=== PATIENT | female | born 1980 | race Caucasian/White ===

== ENCOUNTER 2020-09-27 07:12 | Emergency (ER) | payer MEDICARE, MEDICAID, SELFPAY ==
[2020-09-27 07:30] VITALS: BP 133/80; PULSE 82; RESP 18; TEMP 36.8; O2SAT 97; BMI 25.0
--- NOTE | 2020-09-27 09:36 | ED_ITS ---
HPI - Dental/Oral General Chief complaint: Dental/Oral <LEAH Finnegan Last Filed: 09/27/20 19:16> Stated complaint: tooth pain <LEAH Finnegan Last Filed: 09/27/20 19:16> Time Seen by Provider: 09/27/20 09:16 <LEAH Finnegan Last Filed: 09/27/20 19:16> Source: patient <LEAH Finnegan Last Filed: 09/27/20 19:16> Mode of arrival: ambulatory <LEAH Finnegan Last Filed: 09/27/20 19:16> Limitations: no limitations <LEAH Finnegan Last Filed: 09/27/20 19:16> History of Present Illness HPI Narrative: 60-year-old female with past medical history of dental pain the schedule to have 9 teeth extracted tomorrow, presents for right lower jaw worsening dental pain despite being on clindamycin for 4 days. Had no fevers, no sore throat, no nausea or vomiting. Patient noticed the pain was worsening 2 days ago, and was worse last night. She does not appreciate any bump inside of her mouth. She is getting acid reflux she thinks to the clindamycin. She is concerned that she will not be able to have the dental surgery tomorrow. <LEAH Finnegan Last Filed: 09/27/20 19:16> MD Complaint: tooth pain <LEAH Finnegan Last Filed: 09/27/20 19:16> Teeth map: 1. Avulsed tooth tender to palp <LEAH Finnegan Last Filed: 09/27/20 19:16> Severity: severe <LEAH Finnegan Last Filed: 09/27/20 19:16> Relieving factors: nothing <LEAH Finnegan Last Filed: 09/27/20 19:16> Exacerbating factors: chewing <LEAH Finnegan Last Filed: 09/27/20 19:16> Context: history of dental caries <LEAH Finnegan Last Filed: 09/27/20 19:16> Treatment prior to arrival: none <LEAH Finnegan Last Filed: 09/27/20 19:16> Related Data Home medications: Previous Rx's Medication Instructions Recorded diazepam 2 mg tablet (Valium) 2 mg PO TID 2 Days #6 tab 09/27/20 famotidine 40 mg tablet 40 mg PO DAILY 7 Days #7 tab 09/27/20 <LEAH Finnegan Last Filed: 09/27/20 19:16> Allergies/adverse reactions: Allergies Allergy/AdvReac Type Severity Reaction Status Date / Time egg [EGG] AdvReac Unknown UPSET Verified 09/27/20 07:29 STOMACH <LEAH Finnegan Last Filed: 09/27/20 19:16> Review of Systems Constitutional: Constitutional: Denies body ache(s), Denies chills, Denies fatigue, Denies fever(s), Denies headache(s), Denies malaise and Denies weakness <LEAH Finnegan Last Filed: 09/27/20 19:16> Eyes: Eyes: Denies diplopia <LEAH Finnegan Last Filed: 09/27/20 19:16> ENT: Reports dental pain, Denies vertigo, Denies dizziness, Denies headache(s) and Denies throat swelling <LEAH Finnegan Last Filed: 09/27/20 19:16> Cardiovascular: Cardiovascular: Denies chest pain, Denies syncope, Denies leg edema, Denies lightheadedness, Denies Loss of Consciousness, Denies palpitations and Denies dyspnea <LEAH Finnegan Last Filed: 09/27/20 19:16> Respiratory: Respiratory: Denies chest congestion, Denies cough and Denies dyspnea <LEAH Finnegan Last Filed: 09/27/20 19:16> Gastrointestinal: Gastrointestinal: Reports abdominal pain, Denies hematochezia, Denies constipation, Denies diarrhea and Denies vomiting <LEAH Finnegan Last Filed: 09/27/20 19:16> Musculoskeletal: Musculoskeletal: Reports no additional musculoskeletal complaints <LEAH Finnegan Last Filed: 09/27/20 19:16> Neurologic: Denies confusion, Denies vertigo, Denies dizziness, Denies syncope, Denies headache(s) and Denies weakness <LEAH Finnegan Last Filed: 09/27/20 19:16> Psychiatric: Psychiatric: Denies anxiety, Denies confusion and Denies depression <LEAH Finnegan - Last Filed: 09/27/20 19:16> Endocrine: Endocrine: Denies fatigue and Denies palpitations <LEAH Aden Ch - Last Filed: 09/27/20 19:16> Allergic/Immunologic: Allergic/Immunologic: Denies throat swelling <LEAH Finnegan - Last Filed: 09/27/20 19:16> PMFSH Past Medical History Medical History: Medical History (Updated 09/28/20 @ 00:02 by Cecilia Hoyos) ADHD Autism Julianne's thyroiditis Hypoglycemia PTSD (post-traumatic stress disorder) <LEAH Finnegan - Last Filed: 09/27/20 19:16> Surgical History: Surgical History H/O myringotomy <LEAH Finnegan - Last Filed: 09/27/20 19:16> Social History Social History: Social History Advance Directives: No Advance Directives Information Provided: Yes <LEAH Finnegan - Last Filed: 09/27/20 19:16> Physical Exam Vital Signs: Vital Signs: Last Vital Signs Temp 98.3 F 09/27/20 07:30 Pulse 82 09/27/20 07:30 Resp 18 09/27/20 07:30 BP 133/80 09/27/20 07:30 Pulse Ox 97 09/27/20 07:30 Body Mass Index 25.0 <LEAH Finnegan - Last Filed: 09/27/20 19:16> Vital Signs: Last Vital Signs Temp 98.3 F 09/27/20 07:30 Pulse 82 09/27/20 07:30 Resp 18 09/27/20 07:30 BP 133/80 09/27/20 07:30 Pulse Ox 97 09/27/20 07:30 Body Mass Index 25.0 <Jose Juan Engle MD - Last Filed: 09/28/20 06:57> Const: General: No confusion <LEAH Finnegan - Last Filed: 09/27/20 19:16> Nutritional Appearance: well nourished <Yoko Osullivan [facility] Last Filed: 09/27/20 19:16> Orientation/consciousness: No confusion <Yoko Osullivan [facility] Last Filed: 09/27/20 19:16> Limitations: no limitations <Yoko Osullivan [facility] Last Filed: 09/27/20 19:16> HENMT: Head: Yes normal to inspection, Yes normocephalic and Yes atraumatic <Yoko Osullivan [facility] Last Filed: 09/27/20 19:16> Ears: hearing grossly normal bilaterally, external ears normal, TM's normal bilaterally and EAC's normal <Yoko Osullivan [facility] Last Filed: 09/27/20 19:16> General nose exam: Normal external nose present <Yoko Osullivan [facility] Last Filed: 09/27/20 19:16> Face and sinus: Yes normal facial exam, Yes sinuses nontender and Yes face symmetric <Yoko Osullivan [facility] Last Filed: 09/27/20 19:16> Mouth: Normal oral and palatal mucosa present <Yoko Osullivan [facility] Last Filed: 09/27/20 19:16> Teeth and gingiva: gingiva normal, caries and poor dentition <Yoko Osullivan [facility] Last Filed: 09/27/20 19:16> Throat: Yes posterior oropharynx normal <Yoko Osullivan [facility] Last Filed: 09/27/20 19:16> Eyes: Conjunctivae: conjunctivae normal <Yoko Osullivan [facility] Last Filed: 09/27/20 19:16> Pupils: Equal, round and reactive pupils present <Yoko Osullivan [facility] Last Filed: 09/27/20 19:16> EOM: EOMs intact bilaterally <Yoko Osullivan [facility] Last Filed: 09/27/20 19:16> Neck: Neck: Yes full ROM, Yes no lymphadenopathy and Yes supple <Yoko Osullivan [facility] Last Filed: 09/27/20 19:16> Resp: Effort & Inspection: normal respiratory effort and able to speak in complete sentences <Yoko Osullivan [facility] Last Filed: 09/27/20 19:16> Auscultation: clear to auscultation bilaterally, no crackles, no rales, no rhonchi and no wheezes <Yoko Osullivan [facility] Last Filed: 09/27/20 19:16> Cardio: Rate: regular rate <Yoko Osullivan [facility] Last Filed: 09/27/20 19:16> Rhythm: regular rhythm <Yoko Osullivan [facility] Last Filed: 09/27/20 19:16> Heart sounds: S1 normal heart sound present and S2 normal heart sound present <Yoko Osullivan [facility] Last Filed: 09/27/20 19:16> Skin: General skin exam: no rashes or lesions noted <Yoko Osullivan [facility] Last Filed: 09/27/20 19:16> Neuro: General: No confusion <Yoko Osullivan [facility] Last Filed: 09/27/20 19:16> Cranial nerves: Yes Equal, round and reactive pupils present <Yoko Osullivan [facility] Last Filed: 09/27/20 19:16> Extrem: General: Yes normal to inspection and Yes full ROM <Yoko Osullivan [facility] Last Filed: 09/27/20 19:16> Psych: Appearance: grossly normal <Yoko Osullivan [facility] Last Filed: 09/27/20 19:16> Affect: normal affect <Yoko Osullivan [facility] Last Filed: 09/27/20 19:16> Attitude: cooperative <Yoko Osullivan [facility] Last Filed: 09/27/20 19:16> Thought process: Normal thought process present <LEAH Finnegan Last Filed: 09/27/20 19:16> Course Course Course Narrative: 40-year-old female presents with dental pain. Patient is scheduled to have 9 teeth extracted tomorrow. On exam, patient's pain was over avulsed tooth Number 30, right lower jaw. Patient is afebrile with stable vitals. There is no cellulitis, no gingival erythema, no gum abscess, or any tenderness along patient's gums. I think this patient will be fine for surgery tomorrow, as she has no signs of infection, just pain. Provided Pepcid for the GERD she has had with clinda, consult her to continue taking clinda, prescribed Valium, advised Tylenol. Advised her to call dental surgeon today. Patient verbalized agreement and understanding of the plan <LEAH Finnegan Last Filed: 09/27/20 19:16> Discharge Plan Discharge Clinical Impression: Dental abscess <LEAH Finnegan Last Filed: 09/27/20 19:16> Patient Disposition: Home, Self-Care <LEAH Finnegan Last Filed: 09/27/20 19:16> Instructions: Dental Abscess (ED) <LEAH Finnegan Last Filed: 09/27/20 19:16> Additional Instructions: Take 1000 mg of Tylenol which is acetaminophen every 8 hours. Do not exceed 3000 mg of Tylenol in 24 hours. shift supervisor melting the valium that I prescribed for you, you may take it every 8 hours. If you find your pain is not controlled and you cannot tolerate the pain, do not take more Valium, but return to the emergency room. Please also take the Pepcid daily, this will help with reflux. Please continue on your clindamycin antibiotic. Please call your dental surgery today and discussed your symptoms. I did not see any abscess, cellulitis, or signs of infection in your mouth. I do not think you have any deep space infection in your neck. I think you will be okay to continue with your extraction tomorrow. If you develops high fevers, nausea or vomiting, or severe pain, please return to emergency room <LEAH Finnegan Last Filed: 09/27/20 19:16> Prescriptions: New famotidine 40 mg tablet 40 mg PO DAILY 7 Days Qty: 7 RF: 0 diazepam [Valium] 2 mg tablet 2 mg PO TID 2 Days Qty: 6 RF: 0 <LEAH Finnegan Last Filed: 09/27/20 19:16> Interventions: ED Discharge Assessment Last Done: 09/27/20 09:47 <LEAH Finnegan Last Filed: 09/27/20 19:16> Discharge Date/Time: 09/27/20 09:48 <LEAH Finnegan Last Filed: 09/27/20 19:16>
[2020-09-27] MEDS: Famotidine 20 MG TABLET PO (09:42)
[2020-09-27] MEDS: diazePAM 5 MG TABLET PO (09:42)
[2020-09-27] MEDS: Acetaminophen 325 MG TABLET 975 MG PO (09:42)
== END 2020-09-27 09:48 | disposition home or self-care (01) ==
PROVIDERS: Emergency Provider Emergency Medicine Emergency Medical Services; PCP Family Medicine
DX: K04.7 Periapical abscess without sinus (principal); K08.89 Other specified disorders of teeth and supporting structures
CPT/HCPCS: 99283

== ENCOUNTER 2021-02-15 19:31 | Emergency (ER) | payer MEDICARE, MEDICAID, SELFPAY ==
--- NOTE | ~2021-02-15 | XR_ITS ---
EXAMINATION: XR SHOULDER, LEFT CLINICAL INFORMATION: Left shoulder pain with movement COMPARISON: None TECHNIQUE: Three views of the left shoulder. FINDINGS: The bones and soft tissues are normal. No fracture. Glenohumeral and acromioclavicular alignment is anatomic with normal joint space. No abnormal soft tissue calcifications. XR/XR shoulder LT min 2V IMPRESSION: Normal left shoulder.
[2021-02-15 21:21] VITALS: BP 111/62; PULSE 83; RESP 16; TEMP 36.8; O2SAT 99; BMI 32.8
--- NOTE | 2021-02-15 23:31 | ED.NECK ---
HPI - Neck Pain/Injury General Chief Complaint: Neck Pain/Injury Stated Complaint: left shoulder pain Time Seen by Provider: 02/15/21 23:15 Source: patient Mode of arrival: ambulatory Limitations: no limitations History of Present Illness HPI Narrative: 40-year-old female who presents emergency department for evaluation of neck pain, left shoulder pain and left arm pain. The patient states she woke up on 02/12/2021 (4 days prior to evaluation) with pain in both sides of her neck. The pain is then changed and is now only located on the left side of her neck and in her left shoulder. She states that the pain has been constant but waxes and wanes in intensity. The pain is 8/10 at its worst. She describes the pain as a pulling sensation. The pain is worse with movement of her head and shoulder. She took Excedrin with no relief of her pain. She states she has applied ice and this does help. She has had intermittent nausea associated with her pain. She denied fever, chills, rhinorrhea, cough, chest pain or shortness of breath. Related Data Previous Rx's Medication Instructions Recorded diazepam 2 mg tablet (Valium) 2 mg PO TID 2 Days #6 tab 09/27/20 famotidine 40 mg tablet 40 mg PO DAILY 7 Days #7 tab 09/27/20 cyclobenzaprine 10 mg tablet 10 mg PO TID PRN #15 tab 02/15/21 Allergies Allergy/AdvReac Type Severity Reaction Status Date / Time egg [EGG] AdvReac Unknown UPSET Verified 02/15/21 21:27 STOMACH Review of Systems Review of Systems: Yes all other systems are reviewed and are negative [facility] Past Medical History [facility] Narrative: Social history: The patient denies tobacco, alcohol and drug use. Medical History ADHD Autism Julianne's thyroiditis Hypoglycemia PTSD (post-traumatic stress disorder) Surgical History H/O myringotomy Social History Social History Advance Directives: No Advance Directives Information Provided: No Patient : No Physical Exam Vital Signs: Vital Signs: Last Vital Signs Temp 98.2 F 02/15/21 21:21 Pulse 83 02/15/21 21:21 Resp 16 02/15/21 21:21 BP 111/62 02/15/21 21:21 Pulse Ox 99 02/15/21 21:21 BMI result Body Mass Index 32.8 Const: Other: Very pleasant and cooperative female patient, she does not appear to be in distress, she answers all questions appropriately. Orientation/consciousness: oriented to person and oriented to place HENMT: Head: Yes normal to inspection, Yes No palpable skull fracture present and Yes normocephalic Ears: hearing grossly normal bilaterally and external ears normal General nose exam: Normal external nose present Face and sinus: Yes normal facial exam Mouth: Normal oral and palatal mucosa present Throat: Yes posterior oropharynx normal Eyes: General: appearance normal, both eyes and all related structures Pupils: Equal, round and reactive pupils present Neck: Other: The patient has tenderness and spasm of her left trapezius muscle, she also has some tenderness palpation of her left deltoid muscle. She has full range of motion of her neck without any limitations, her neck supple. Chest: Chest palpation & inspection: normal inspection of the chest and normal palpation of entire chest wall Resp: Effort & Inspection: normal respiratory effort GI: Inspection: Yes normal to inspection Palpation (GI): Soft to palpation and nontender Back/Spine/Pelvis: Other: Patient has no vertebral tenderness, no paraspinal muscle tenderness Neuro: General: oriented to person and oriented to place Cranial nerves: Yes CN's II-XII intact bilaterally and Yes Equal, round and reactive pupils present Cognition (Neuro): normal cognition Motor exam (neuro): 5/5 motor strength present throughout Extrem: General: Yes normal to inspection and Yes full ROM Psych: Appearance: grossly normal Mental Status: mental status grossly normal Speech and movement: Normal speech and movement present Affect: normal affect Attitude: cooperative Course Course Course Narrative: 40-year-old female who presents emergency department for evaluation left-sided neck and left shoulder pain x4 days. The patient did not have any injury and woke up with a pain 4 days prior. Patient's vital signs were normal. Physical examination did reveal tenderness palpation of the left trapezius muscles with spasm of these muscles as well as tenderness palpation of the left deltoid muscle. Patient's presentation is consistent with neck sprain/strain and spasm. The patient was advised to take Tylenol and ibuprofen. She is also prescribe cyclobenzaprine. She was given printed and verbal instructions and discharged home. Discharge Plan Discharge Clinical Impression: Strain of neck muscle Patient Disposition: Home, Self-Care Instructions: Cervical Sprain (ED) Additional Instructions: Your examination is consistent with a sprain/strain of your neck muscles. Take Motrin (ibuprofen) 200 mg pills, 3 pills every 6 hours as needed for pain. Take Tylenol (acetaminophen) 500 mg pills, 2 pills every 6 hours as needed for pain. Take Flexeril (cyclobenzaprine) 10 mg pills, 1 pill every 8 hours as needed for pain or muscle spasm. This is a prescription medication. This medication will make you sleepy, therefore do not drive or work while taking this medication. Apply ice for 15 minutes to the area that hurts on your neck and left shoulder for 15 minutes. Do this 4-6 times a day to help reduce the pain in your neck and shoulder. Continue with normal activities as tolerated since staying in bed and not moving around will make your pain worse. Please return to the Emergency Department or see your doctor immediately if your symptoms get worse or if you develop any new symptoms that are concerning you. Follow up with your doctor in 2 day. Please read the other printed discharge instructions on neck sprain/strain. This is your radiology reading of your left shoulder, the x-ray was normal. EXAMINATION: XR SHOULDER, LEFT CLINICAL INFORMATION: Left shoulder pain with movement? COMPARISON: None? TECHNIQUE: Three views of the left shoulder. FINDINGS: The bones and soft tissues are normal. No fracture. Glenohumeral and acromioclavicular alignment is anatomic with normal joint space. No abnormal soft tissue calcifications.? XR/XR shoulder LT min 2V IMPRESSION: Normal left shoulder. Dictated By: URBAN SO MD Signed By: <Electronically signed by URBAN SO MD in OV> 02/15/211958 Prescriptions: New cyclobenzaprine 10 mg tablet 10 mg PO TID PRN (Reason: pain, muscle spasm) Qty: 15 RF: 0 No Action famotidine 40 mg tablet 40 mg PO DAILY 7 Days Qty: 7 RF: 0 diazepam [Valium] 2 mg tablet 2 mg PO TID 2 Days Qty: 6 RF: 0
== END 2021-02-15 23:56 | disposition home or self-care (01) ==
PROVIDERS: Emergency Provider Emergency Medicine Emergency Medical Services; PCP Family Medicine
DX: S16.1XXA Strain of muscle, fascia and tendon at neck level, initial encounter (principal); X50.1XXA Overexertion from prolonged static or awkward postures, initial encounter; Y93.84 Activity, sleeping; Y92.013 Bedroom of single-family (private) house as the place of occurrence of the external cause; Y99.9 Unspecified external cause status
CPT/HCPCS: 73030; 99283

== ENCOUNTER 2022-07-05 21:44 | Emergency (ER) | payer MEDICARE, MEDICAID, SELFPAY ==
[2022-07-05 21:48] VITALS: BP 129/73; PULSE 90; RESP 18; TEMP 36.6; O2SAT 100; BMI 32.9
--- NOTE | 2022-07-05 21:54 | PC.NURSE ---
pt a&o, no sign of respiratory distress, pt able to speak in full sentences, no strider or retraction at this time, pt requesting to go the bathroom at this time, pt change into hospital attire, Iv line place. Will continue to monitor.
[2022-07-05 22:05] VITALS: BP 124/64; PULSE 96; RESP 22; TEMP 37.1; O2SAT 100
--- NOTE | 2022-07-05 22:20 | PC.NURSE ---
Pt ca&ox3. No signs of distress. Pt denies pain or sob. IV line attempted, provider stated does not require a line at this time. Will continue to monitor.
[2022-07-05 22:31] VITALS: BP 118/78; PULSE 106
[2022-07-05] MEDS: EPINEPHrine 1 MG/ML VIAL 0.3 MG IM (22:31)
[2022-07-05] MEDS: dexAMETHasone 2 MG TABLET 10 MG PO (22:31)
--- NOTE | 2022-07-05 22:39 | PC.NURSE ---
Pt ca&ox3. No signs of distress. Pt denies pain and sob. Meds admin per mar. Will continue to monitor.
--- NOTE | 2022-07-05 23:17 | ED.ALLEREA ---
HPI - Allergic Reaction General Chief complaint: Allergic Reaction Stated complaint: Allergic reaction/tongue swollen/hard to breathe Time Seen by Provider: 07/05/22 21:59 Source: patient Mode of arrival: ambulatory Limitations: no limitations History of Present Illness HPI narrative: Patient with intermittent allergic reactions in the past with multiple agents noticed slight itchiness throat since last night got worse today with tongue swelling and lip tingling just prior to arrival patient took Benadryl and Claritin prior to arrival feels slight shortness of breath anxious no significant rash Related Data Home Medications Medication Instructions Recorded Confirmed hydrocortisone 5 mg tablet 0 mg PO 10/05/21 thyroid (pork) 90 mg tablet 90 mg PO DAILY 10/05/21 (Mantoloking Thyroid) dextroamphetamine-amphetamine ER 1 cap PO DAILY 04/24/22 15 mg 24hr capsule,extend release Previous Rx's Medication Instructions Recorded montelukast 10 mg tablet 10 mg PO BEDTIME #30 tabs 07/05/22 (Singulair) Allergies Allergy/AdvReac Type Severity Reaction Status Date / Time egg [EGG] AdvReac Unknown UPSET Verified 07/05/22 21:48 STOMACH Review of Systems Review of Systems: Yes all other systems are reviewed and are negative [facility] Past Medical History Medical History ADHD Autism Julianne's thyroiditis Hypoglycemia PTSD (post-traumatic stress disorder) Surgical History H/O myringotomy Social History Social History Smoked in Last 30 Days: No Use of substances other than those prescribed or required for medical reasons: No Advance Directives: No Advance Directives Information Provided: Yes Patient : No Physical Exam ED Vital Signs: Vital Signs - 24 hr 07/05/22 21:48 07/05/22 22:05 07/05/22 22:31 Temperature 98 F 98.8 F Pulse Rate 90 96 106 H Respiratory Rate 18 22 H Blood Pressure 129/73 124/64 118/78 Pulse Oximetry 100 100 Oxygen Delivery Method Room Air Room Air BMI result Body Mass Index 32.9 Appearance: Alert. Oriented X3. No acute distress. And ENT: Pharynx normal. Oral Mucosa moist slight tongue swelling uvula normal, lips slightly swollen Neck: Normal inspection. Neck supple. No stridor CVS: Normal heart rate and rhythm. Pulses normal. Respiratory: No respiratory distress. Equal air entry bilateral, no wheezing/rales/rhonchi Abdomen: Soft and nontender. Bowel sounds are present, no mass palpable, no CVA tenderness Skin: Skin warm and dry. Normal skin color. Normal skin turgor. Extremities: No lower extremity edema. No calf tenderness Neuro: Oriented X 3. Medications Administered Discontinued Medications Generic Name Dose Route Start Last Admin Trade Name Anju PRN Reason Stop Dose Admin Dexamethasone 10 mg 07/05/22 22:23 07/05/22 22:31 Dexamethasone 2 Mg Tablet PO 07/05/22 22:24 10 mg ONCE ONE Administration Epinephrine 0.3 mg 07/05/22 22:23 07/05/22 22:31 Epinephrine 1 Mg/Ml Vial IM 07/05/22 22:24 0.3 mg STAT STA Administration Discharge Plan Discharge Clinical Impression: Allergic reaction Patient Disposition: Home, Self-Care Instructions: General Allergic Reaction (ED) Additional Instructions: Continue your medications Start taking Singulair 1 tablet every night Follow-up with PCP for further management including allergy test Prescriptions: New montelukast [Singulair] 10 mg tablet 10 mg PO BEDTIME Qty: 30 0RF No Action thyroid (pork) [Mantoloking Thyroid] 90 mg tablet 90 mg PO DAILY hydrocortisone 5 mg tablet 0 mg PO dextroamphetamine-amphetamine 15 mg capsule,extended release 24hr 1 cap PO DAILY
--- NOTE | 2022-07-05 23:18 | PC.NURSE ---
Pt ca&ox3, no signs of distress. Pt denies pain and sob. Pts partner at bedside. Pt requested and given a warm blanket. Pt resting comfortably. Will continue to monitor.
== END 2022-07-05 23:48 | disposition home or self-care (01) ==
PROVIDERS: Emergency Provider Internal Medicine
DX: R21 Rash and other nonspecific skin eruption (principal); T78.40XA Allergy, unspecified, initial encounter; X58.XXXA Exposure to other specified factors, initial encounter; Z79.899 Other long term (current) drug therapy; R06.02 Shortness of breath
CPT/HCPCS: 96372; 99284; J0171; J8540

== ENCOUNTER 2022-07-11 23:55 | Emergency (ER) | payer MEDICARE, MEDICAID, SELFPAY ==
[2022-07-11 23:56] VITALS: BP 141/84; PULSE 93; RESP 18; TEMP 36.3; O2SAT 100; BMI 29.0
--- OUTSIDE RECORDS SUMMARY | 2022-07-12 00:08 | XMS_ITS | Continuity of Care Document ---
Author Name Unknown Organization [facility] Address [address] [place] [id number] Care Team Providers Care Electrical Contacts Adjuster Name Role Phone Angelica Jain NP Primary Care Physician Encounter [facility] [place] Date(s): 09/01/21 - 10/01/21 [facility] [address] [place] [id number] Allergies, Adverse Reactions, Alerts No Known Medication Allergies Substance Reaction Severity Status [place] Active Medications [place] Thyroid = 90 mg, By Mouth, Daily, 0 Refills, Maintenance, 06/21/21 11:55:00 EDT, Partial fill upon patient request if the prescription is for a schedule II opioid drug. Start Date: 06/21/21 Status: Ordered C. Diff Toxin assay C. Diff Toxin assay, See Instructions, # 1 each, Refills 0, Tot. Refills 0, Maintenance, Stool sample for C. Diff toxin assay, 06/24/21 22:01:00 EDT, Supply Start Date: 06/24/21 Status: Ordered EpiPen 2-Gagan = 0.3 mg, Intramuscular, Once, 0 Refills, Maintenance, 06/21/21 11:56:00 EDT, Partial fill upon patient request if the prescription is for a schedule II opioid drug. Start Date: 06/21/21 Status: Ordered HydroCORTisone = 25 mg, By Mouth, Daily, 0 Refills, Maintenance, 06/24/21 21:44:00 EDT, Partial fill upon patient request if the prescription is for a schedule II opioid drug. Start Date: 06/24/21 Status: Ordered Methylphenidate = 20 mg, 0 Refills, Maintenance, 06/21/21 11:56:00 EDT, Partial fill upon patient request if the prescription is for a schedule II opioid drug. Start Date: 06/21/21 Status: Ordered Misc Rx VIT D3, Refills 0, Maintenance, 06/21/21 11:57:00 EDT, Supply Start Date: 06/21/21 Status: Ordered Problem List Condition Effective Dates Status Health Status Inform ant Obese class II(Confirmed) Active Social History Social History Type Response Smoking Status Never (less than 100 in lifetime) entered on: 06/24/21 Sex
--- OUTSIDE RECORDS SUMMARY | 2022-07-12 00:08 | XMS_ITS | Continuity of Care Document ---
Author Name Unknown Organization [facility] Address [address] [place] [phone]- Care Team Providers Care Angiography Technologist Name Role Phone Angelica Jain NP Primary Care Physician Encounter [facility] [place] Date(s): 09/06/21 - 10/06/21 [facility] [address] [place] [id number] Allergies, Adverse Reactions, Alerts No Known Medication Allergies Substance Reaction Severity Status [place] Active Medications [place] Thyroid = 90 mg, By Mouth, Daily, [...] EDT, Supply Start Date: 06/21/21 Status: Ordered Solu-CORTEF Act-O-Vial 100 mg injection = 100 mg, Intramuscular, Once, # 1 each, 5 Refills, Soft Stop, 10/04/21 16:01:00 EDT, Powder, [facility] #[id number], Partial fill upon patient request if the prescription is for a schedule II opioid drug., 170, cm, 10/04/21 15:02:00 EDT, Height,... Start Date: 10/04/21 Status: Ordered Problem List Condition Effective Dates Status Health Status Inform ant Obese class I(Confirmed) Active Social History Social History Type Response Smoking Status Never (less than 100 in lifetime) entered on: 06/24/21 Sex
--- OUTSIDE RECORDS SUMMARY | 2022-07-12 00:08 | XMS_ITS | Continuity of Care Document ---
Author Name Unknown Organization [facility] Address Unknown Care Team Providers Care Care Giver Name Role Phone Cristobal RAMIREZ, Angelica Primary Care Physician Encounter [facility] [place] Date(s): 07/21/21 - 07/28/21 [facility] Attending Physician: Terrie Dillard DNP Referring Physician: John Paul Tanner MD Allergies, Adverse Reactions, Alerts No Known Medication Allergies Substance Reaction Severity Status [place] Active Medications [place] Thyroid = 90 mg, By Mouth, Daily, [...] Status Inform ant Obese class II(Confirmed) Active Vital Signs Most recent to oldest [Reference Range]: 1 2 Height 170 cm (07/24/21 7:51 AM) 170 cm (07/21/21 3:21 PM) Weight 105.8 kg (07/24/21 7:51 AM) 105.8 kg (07/21/21 3:21 PM) Oxygen Saturation [94-100 %] 99 % (07/21/21 3:21 PM) Pulse Rate [55-90 bpm] 76 bpm (07/21/21 3:21 PM) Body Mass Index [18.5-24.99] 36.61 *>HHI* (07/21/21 3:21 PM) Blood Pressure [90-138/55-84 mm Hg] 102/ 68mm Hg (07/21/21 3:21 PM) Mode of Delivery (Oxygen) Room air (07/21/21 3:21 PM) Blood pressure sites Arm, right (07/21/21 3:21 PM) Social History Social History Type Response Smoking Status Never (less than 100 in lifetime) entered on: 06/24/21 Sex
--- OUTSIDE RECORDS SUMMARY | 2022-07-12 00:08 | XMS_ITS | Continuity of Care Document ---
Author Name Unknown Organization [facility] Address [address] [place] [address]- Care Team Providers Care Office Manager Name Role Phone Angelica Jain NP Primary Care Physician [place] [facility]21 - 09/30/21 [facility] [address] [place] [id number] Allergies, Adverse Reactions, Alerts No Known Medication Allergies Substance Reaction Severity Status [place] Active Medications [place] Thyroid = 90 mg, By Mouth, Daily, [...]
--- OUTSIDE RECORDS SUMMARY | 2022-07-12 00:08 | XMS_ITS | Continuity of Care Document ---
Author Name Unknown Organization [facility] Address [address] [place] [phone]- Care Team Providers Care Punch Finisher Name Role Phone Angelica Jain NP Primary Care Physician Encounter [facility] [place] Date(s): 12/22/21 - 01/21/22 [facility] [address] [place] [id number] Allergies, Adverse Reactions, Alerts Substance Reaction Severity Status [place] Active Egg Allergy Active Medications Adderall 10 mg oral tablet 1 tablet = 10 mg, By Mouth, Daily in AM, 0 Refills, Maintenance, 12/20/21 11:26:00 EDT, Tablet, Partial fill upon patient request if the prescription is for a schedule II opioid drug. Start Date: 12/20/21 Status: Ordered [place] Thyroid = 90 mg, By Mouth, Daily, [...] EDT, Supply Start Date: 06/24/21 Status: Ordered dexamethasone 1 mg oral tablet 1 tablet = 1 mg, By Mouth, Once, to be taken after morning dose of hydrocortisone the night before labs are drawn., # 1 tablet, 0 Refills, Soft Stop, 11/27/21 17:51:00 EDT, [facility] #[id number], Partial fill upon patient request if the prescrip... Start Date: 11/27/21 Status: Ordered EpiPen 2-Gagan = 0.3 mg, [...] opioid drug. Start Date: 06/21/21 Status: Ordered [facility] VIT D3, Refills 0, Maintenance, 06/21/21 11:57:00 EDT, Supply Start Date: 06/21/21 Status: Ordered Solu-CORTEF Act-O-Vial 100 mg injection = 100 mg, Intramuscular, Once, # 1 each, 5 Refills, Soft Stop, 10/04/21 16:01:00 EDT, Powder, [facility] #[id number], Partial fill upon patient request if the prescription is for a schedule II opioid drug., 170, cm, 10/04/21 15:02:00 EDT, Height,... Start Date: 10/04/21 Status: Ordered Problem List Condition Confirmation Course Effective Dates Status Health St [facility] Informant Obese class I Confirmed Active Social History Social History Type Response Smoking Status Never (less than 100 in lifetime) entered on: 06/24/21 Sex Patient Care team information Care Team Personnel Name: Angelica Jain NP Position: Reference Physician Member Role: PCP Address: Address: [address] [place] [address]- Care Team Related Persons Name: MARIAM RIBEIRO Address: home [address] [place] [address]
--- OUTSIDE RECORDS SUMMARY | 2022-07-12 00:08 | XMS_ITS | Continuity of Care Document ---
Author Name Unknown Organization [facility] Address Unknown Care Team Providers Care Professional Application Designer Name Role Phone Cristobal BONDERITE OPERATOR, Angelica Primary Care Physician Encounter [facility] Date(s): 06/27/21 - 07/27/21 [facility] Allergies, Adverse Reactions, Alerts No Known Medication Allergies Substance Reaction Severity Status [place] Active Medications [place] Thyroid = 90 mg, By Mouth, Daily, [...] opioid drug. Start Date: 06/21/21 Status: Ordered [facility] [place] V[place] D[facility], Refills 0, Maintenance, 06/21/21 11:57:00 EDT, Supply Start Date: 06/21/21 Status: Ordered Problem List Condition Effective Dates Status Health Status Inform ant Obese class II(Confirmed) Active Social History Social History Type Response Smoking Status Never (less than 100 in lifetime) entered on: 06/24/21 Sex
--- OUTSIDE RECORDS SUMMARY | 2022-07-12 00:08 | XMS_ITS | Continuity of Care Document ---
Author Name Unknown Organization [facility] Address Unknown Care Team Providers Care Insights Manager Name Role Phone Cristobal RAMIREZ, Angelica Primary Care Physician [place] [facility] [place] Date(s): 07/21/21 - 08/20/21 [facility] Attending Physician: Asmita Durand Admitting Physician: Asmita Durand Referring Physician: Asmita Durand Allergies, Adverse Reactions, Alerts No Known Medication Allergies Substance Reaction Severity Status [place] Active Medications [place] Thyroid = 90 mg, By Mouth, Daily, [...]
--- OUTSIDE RECORDS SUMMARY | 2022-07-12 00:08 | XMS_ITS | Continuity of Care Document ---
Author Name Unknown Organization [facility] Address [address] [place] [phone]- Care Team Providers Care Controller Operations And Hr Manager Name Role Phone Angelica Jain NP Primary Care Physician Encounter [facility] [place] Date(s): 12/14/21 - 01/13/22 [facility] [address] [place] [id number] Allergies, Adverse Reactions, Alerts Substance Reaction Severity Status [place] Active Egg Allergy Active Medications Adderall 10 mg oral tablet 1 tablet = 10 mg, By Mouth, Daily in AM, 0 Refills, Maintenance, 12/20/21 11:26:00 EDT, Tablet, Partial fill upon patient request if the prescription is for a schedule II opioid drug. Start Date: 12/20/21 Status: Ordered [place] Thyroid = 90 mg, By Mouth, Daily, [...] 0 Refills, Soft Stop, 11/27/21 17:51:00 EDT, [facility] #[id number], Partial fill upon patient request if the [...] opioid drug. Start Date: 06/21/21 Status: Ordered [facility] [place] VIT D3, Refills 0, Maintenance, 06/21/21 11:57:00 EDT, Supply Start Date: 06/21/21 Status: Ordered Solu-CORTEF Act-O-Vial 100 mg injection = 100 mg, Intramuscular, Once, # 1 each, 5 Refills, Soft Stop, 10/04/21 16:01:00 EDT, Powder, [facility] #[id number], Partial fill upon patient request if the [...] Physician Member Role: PCP Address: Address: [address] [place] [address]- Care Team Related Persons Name: MARIAM RIBEIRO Address: home [address] [place] [address]
--- OUTSIDE RECORDS SUMMARY | 2022-07-12 00:08 | XMS_ITS | Continuity of Care Document ---
Author Name Unknown Organization [facility] Address [address] [place] [address]- Care Team Providers Care Plastics Fabrication Supervisor Name Role Phone Angelica Jain NP Primary Care Physician Encounter [facility] [place] Date(s): 03/01/22 - 03/31/22 [facility] [address] [place] [phone] Attending Physician: AdmAsmita jimenez Admitting Physician: AdmtrAsmita Referring Physician: Admtr, Ar8 Allergies, Adverse Reactions, Alerts Substance Reaction Severity Status [place] Active Egg Allergy Active Medications Adderall 10 mg oral tablet 1 tablet = 10 mg, By Mouth, Daily in AM, 0 Refills, Maintenance, 12/20/21 11:26:00 EDT, Tablet, Partial fill upon patient request if the prescription is for a schedule II opioid drug. Start Date: 12/20/21 Status: Ordered [place] Thyroid = 90 mg, By Mouth, Daily, 0 Refills, Maintenance, 06/21/21 11:55:00 EDT, Partial fill upon patient request if the prescription is for a schedule II opioid drug. Start Date: 06/21/21 Status: Ordered aspirin 81 mg oral capsule 1 capsule = 81 mg, By Mouth, Every 4 hours, 0 Refills, Maintenance, 03/01/22 14:06:00 EST, Partial fill upon patient request if the prescription is for a schedule II opioid drug. Start Date: 03/01/22 Status: Ordered C. Diff Toxin assay C. [...] 0 Refills, Soft Stop, 11/27/21 17:51:00 EDT, [facility] #[id number], Partial fill upon patient request if the [...] drug. Start Date: 06/21/21 Status: Ordered [facility] [place] VIT D[facility], Refills 0, Maintenance, 06/21/21 11:57:00 EDT, Supply Start Date: 06/21/21 Status: Ordered Solu-CORTEF Act-O-Vial 100 mg injection = 100 mg, Intramuscular, Once, # 1 each, 5 Refills, Soft Stop, 10/04/21 16:01:00 EDT, Powder, [facility] #[id number], Partial fill upon patient request if the [...] Reference Physician Member Role: PCP Address: Address: [address] [place] [address] Care Team Related Persons Name: MARIAM RIBEIRO Address: [address] [place] [address]
--- OUTSIDE RECORDS SUMMARY | 2022-07-12 00:08 | XMS_ITS | Continuity of Care Document ---
Author Name Unknown Organization [facility] Address [address] [place] [address]- Care Team Providers Care Repairer Helper Name Role Phone Cristobal RAMIREZ, Angelica Primary Care Physician Encounter [facility] [place] Date(s): 06/28/21 - 06/28/[address] [phone]- Encounter Diagnosis Metallic taste(Final) - 06/28/21 Rhinorrhea(Final) - 06/28/21 Metallic taste(Final) - 06/28/21 Rhinorrhea(Final) - 06/28/21 Discharge Disposition: A-D/C Home Attending Physician: Sera Myers MD Admitting Physician: Sera Myers MD Referring Physician: Not on Staff, Referring MD Allergies, Adverse Reactions, Alerts No Known Medication Allergies Substance Reaction Severity Status [place] Active Medications [place] Thyroid = 90 mg, By Mouth, Daily, [...] recent to oldest [Reference Range]: 1 2 3 Oxygen Saturation [94-100 %] 99 % (06/28/21 8:15 PM) 99 % (06/28/21 5:10 PM) 100 % (06/28/21 3:13 PM) Pulse Rate [55-90 bpm] 91 bpm *H* (06/28/21 8:15 PM) 80 bpm (06/28/21 5:10 PM) 85 bpm (06/28/21 3:13 PM) Blood Pressure [90-138/55-84 mm Hg] 120/74mm Hg (06/28/21 8:15 PM) 119/72mm Hg (06/28/21 5:10 PM) 149/104mm Hg *H* (06/28/21 3:13 PM) Respiratory Rate [16-30 br/min] 17 br/min (06/28/21 8:15 PM) 18 br/min (06/28/21 3:13 PM) 18 br/min (06/28/21 1:03 PM) Temperature [96.8-100.4 DegF] 98.8 DegF (06/28/21 8:15 PM) 97.7 DegF (06/28/21 5:10 PM) 97.7 DegF (06/28/21 3:13 PM) Mode of Delivery (Oxygen) Room air (06/28/21 8:15 PM) Room air (06/28/21 5:10 PM) Room air (06/28/21 10:59 AM) Blood pressure sites Arm, left (06/28/21 8:15 PM) Arm, left (06/28/21 5:10 PM) Arm, right (06/28/21 3:13 PM) Temperature Route Oral (06/28/21 8:15 PM) Temporal (06/28/21 5:10 PM) Oral (06/28/21 3:13 PM) Social History Social History Type Response Smoking Status Never (less than 100 in lifetime) entered on: 06/24/21 Sex
--- OUTSIDE RECORDS SUMMARY | 2022-07-12 00:08 | XMS_ITS | Continuity of Care Document ---
Author Name Unknown Organization [facility] Address Unknown Care Team Providers Care Chief Writer Name Role Phone Cristobal RAMIREZ, Angelica Primary Care Physician [place] [facility] [place]23[place]21 - 09/22/21 [facility] Allergies, Adverse Reactions, Alerts No Known Medication Allergies Substance Reaction Severity Status [place] Active Medications [place] Thyroid = 90 mg, By Mouth, Daily, [...]
--- OUTSIDE RECORDS SUMMARY | 2022-07-12 00:08 | XMS_ITS | Continuity of Care Document ---
Author Name Unknown Organization [facility] Address [address] [place] [address]- Care Team Providers Care Senior Manager Asset Protection Name Role Phone Angelica Jain NP Primary Care Physician [place] [facility] [place] - 10/04/21 [facility] [address] [place] [address]- Allergies, Adverse Reactions, Alerts No Known Medication Allergies Substance Reaction Severity Status [place] Active Medications [place] Thyroid = 90 mg, By Mouth, Daily, [...] Refills, Soft Stop, 10/04/21 16:01:00 EDT, Powder, [facility] #[id number], Partial fill upon patient request if the [...]
--- OUTSIDE RECORDS SUMMARY | 2022-07-12 00:08 | XMS_ITS | Continuity of Care Document ---
Author Name Unknown Organization [facility] Address Unknown Care Team Providers Care Checker Product Design Name Role Phone Cristobal RAMIREZ, Angelica Primary Care Physician Encounter [facility] [place] Date(s): 06/28/21 - 07/28/21 [facility] Allergies, Adverse Reactions, Alerts No Known Medication Allergies Substance Reaction Severity Status [place] Active Medications [place] Thyroid = 90 mg, By Mouth, Daily, [...]
--- OUTSIDE RECORDS SUMMARY | 2022-07-12 00:08 | XMS_ITS | Continuity of Care Document ---
Author Name Unknown Organization [facility] Address [address] [place] [address]- Care Team Providers Care Bridge Crane Operator Name Role Phone Angelica Jain NP Primary Care Physician [place] [facility] [place](s): 11/29/21 - 12/29/21 [facility] [address] [place] [id number] Allergies, Adverse Reactions, Alerts Substance Reaction Severity Status [place] Active Egg Allergy Active Medications Adderall 10 mg oral tablet 1 tablet = 10 mg, By Mouth, Daily in AM, 0 Refills, Maintenance, 12/20/21 11:26:00 EDT, Tablet, Partial fill upon patient request if the prescription is for a schedule II opioid drug. Start Date: 12/20/21 Status: Ordered [place] Thyroid = 90 mg, By Mouth, Daily, [...] 0 Refills, Soft Stop, 11/27/21 17:51:00 EDT, [facility] #[id number], Partial fill upon patient request if the [...] opioid drug. Start Date: 06/21/21 Status: Ordered [facility] Rx VIT D3, Refills 0, Maintenance, 06/21/21 11:57:00 EDT, Supply Start Date: 06/21/21 Status: Ordered Solu-CORTEF Act-O-Vial 100 mg injection = 100 mg, Intramuscular, Once, # 1 each, 5 Refills, Soft Stop, 10/04/21 16:01:00 EDT, Powder, [facility] #[id number], Partial fill upon patient request if the [...] Physician Member Role: PCP Address: Address: [address] [place] [address]- Care Team Related Persons Name: MARIAM RIBEIRO Address: home [address] [place] [id number]
--- OUTSIDE RECORDS SUMMARY | 2022-07-12 00:08 | XMS_ITS | Continuity of Care Document ---
Author Name Unknown Organization [facility] Address Unknown Care Team Providers Care Photographic Hand Developer Name Role Phone Cristobal RAMIREZ, Angelcia Primary Care Physician [place] [facility] [place](s[place] 06/22/21 - 06/29/21 [facility] Attending Physician: Terrie Dillard DNP Referring Physician: John Paul Tanner MD Allergies, Adverse Reactions, Alerts No Known Medication Allergies Substance Reaction Severity Status [place] Active Medications [place] Thyroid = 90 mg, By Mouth, Daily, [...]
--- OUTSIDE RECORDS SUMMARY | 2022-07-12 00:08 | XMS_ITS | Continuity of Care Document ---
Author Name Unknown Organization [facility] Address [address] [place] [phone]- Care Team Providers Care Biotechnologist Name Role Phone Angelica Jain NP Primary Care Physician [place] [facility] [place] 12/28/21 [facility] [address] [place] [id number] Allergies, Adverse Reactions, Alerts Substance Reaction Severity Status [place] Active Egg Allergy Active Medications Adderall 10 mg oral tablet 1 tablet = 10 mg, By Mouth, Daily in AM, 0 Refills, Maintenance, 12/20/21 11:26:00 EDT, Tablet, Partial fill upon patient request if the prescription is for a schedule II opioid drug. Start Date: 12/20/21 Status: Ordered [place] Thyroid = 90 mg, By Mouth, Daily, [...] 0 Refills, Soft Stop, 11/27/21 17:51:00 EDT, [facility] #[id number], Partial fill upon patient request if the [...] opioid drug. Start Date: 06/21/21 Status: Ordered [facility] [place] D[place], Refills 0, Maintenance, 06/21/21 11:57:00 EDT, Supply Start Date: 06/21/21 Status: Ordered Solu-CORTEF Act-O-Vial 100 mg injection = 100 mg, Intramuscular, Once, # 1 each, 5 Refills, Soft Stop, 10/04/21 16:01:00 EDT, Powder, [facility] #[id number], Partial fill upon patient request if the [...] Physician Member Role: PCP Address: Address: [address] [place] [address]- Care Team Related Persons Name: MARIAM RIBEIRO Address: home [address] [place] [phone]
--- OUTSIDE RECORDS SUMMARY | 2022-07-12 00:08 | XMS_ITS | Continuity of Care Document ---
Author Name Unknown Organization [facility] Address [address] [place] [address]- Care Team Providers Care Vine Fruit Farming Supervisor Name Role Phone Angelica Jain NP Primary Care Physician [place] [facility] [place] 10/26/21 - 11/25/21 [facility] [address] [place] [address] Allergies, Adverse Reactions, Alerts No Known Medication Allergies Substance Reaction Severity Status [place] Active Medications [place] Thyroid = 90 mg, By Mouth, Daily, [...] opioid drug. Start Date: 06/21/21 Status: Ordered [facility] [place] VIT D3, Refills 0, Maintenance, 06/21/21 11:57:00 EDT, Supply Start Date: 06/21/21 Status: Ordered Solu-CORTEF Act-O-Vial 100 mg injection = 100 mg, Intramuscular, Once, # 1 each, 5 Refills, Soft Stop, 10/04/21 16:01:00 EDT, Powder, [facility] #[id number], Partial fill upon patient request if the [...] on: 06/24/21 Sex Patient Care team information Personnel Name: Angelica Jain NP Address: Address: [address] [place] [id number]
--- OUTSIDE RECORDS SUMMARY | 2022-07-12 00:08 | XMS_ITS | Continuity of Care Document ---
Author Name Unknown Organization [facility] Address [address] [place] [address]- Care Team Providers Care Dna Sequencing Associate Name Role Phone Angelica Jain NP Primary Care Physician [place] [facility] [place] 02/08/22 [facility] [address] [place] [id number] Allergies, Adverse Reactions, Alerts Substance Reaction Severity Status [place] Active Egg Allergy Active Medications Adderall 10 mg oral tablet 1 tablet = 10 mg, By Mouth, Daily in AM, 0 Refills, Maintenance, 12/20/21 11:26:00 EDT, Tablet, Partial fill upon patient request if the prescription is for a schedule II opioid drug. Start Date: 12/20/21 Status: Ordered [place] Thyroid = 90 mg, By Mouth, Daily, [...] 0 Refills, Soft Stop, 11/27/21 17:51:00 EDT, [facility] #[id number], Partial fill upon patient request if the [...] opioid drug. Start Date: 06/21/21 Status: Ordered [facility] [place] VIT D3, Refills 0, Maintenance, 06/21/21 11:57:00 EDT, Supply Start Date: 06/21/21 Status: Ordered Solu-CORTEF Act-O-Vial 100 mg injection = 100 mg, Intramuscular, Once, # 1 each, 5 Refills, Soft Stop, 10/04/21 16:01:00 EDT, Powder, [facility] #[id number], Partial fill upon patient request if the [...] Physician Member Role: PCP Address: Address: [address] [place] [address]- Care Team Related Persons Name: MARIAM RIBEIRO Address: home [address] [place] [address]
--- OUTSIDE RECORDS SUMMARY | 2022-07-12 00:08 | XMS_ITS | Continuity of Care Document ---
Author Name Unknown Organization [facility] Address [address] [place] [address]- Care Team Providers Care Transcriber Name Role Phone Angelica Jain NP Primary Care Physician [place] [facility] [place]12[place]21 - 11/11/21 [facility] [address] [place] [id number] Allergies, Adverse Reactions, Alerts No Known Medication Allergies Substance Reaction Severity Status [place] Active Medications [place] Thyroid = 90 mg, By Mouth, Daily, [...] Refills, Soft Stop, 10/04/21 16:01:00 EDT, Powder, [facility] #[id number], Partial fill upon patient request if the prescription is for a schedule II opioid drug., 170, cm, 10/04/21 15:02:00 EDT, Height,... Start Date: 10/04/21 Status: Ordered Problem List Condition Effective Dates Status Health Status Inform ant Obese class I(Confirmed) Active Social History Social History Type Response Smoking Status Never (less than 100 in lifetime) entered on: 06/24/21 Sex Care Team Personnel Name: Angelica Jain NP Address: [address] [place] [address]
--- OUTSIDE RECORDS SUMMARY | 2022-07-12 00:08 | XMS_ITS | Continuity of Care Document ---
Author Name Unknown Organization [facility] Address Unknown Care Team Providers Care Landscape Architecture Professor Name Role Phone Cristobal RAMIREZ, Angelica Primary Care Physician En[place] [facility] [place] Date(s): 06/30/21 - 07/30/21 [facility] Allergies, Adverse Reactions, Alerts No Known Medication Allergies Substance Reaction Severity Status [place] Active Medications [place] Thyroid = 90 mg, By Mouth, Daily, [...]
--- OUTSIDE RECORDS SUMMARY | 2022-07-12 00:08 | XMS_ITS | Continuity of Care Document ---
Author Name Unknown Organization [facility] Address [address] [place] [id number]- Care Team Providers Care Tractor Trailer Mechanic Name Role Phone Angelica Jain NP Primary Care Physician [place] [facility] [place](s): 12/19/21 - 01/18/22 [facility] [address] [place] [id number] Allergies, Adverse Reactions, Alerts Substance Reaction Severity Status [place] Active Egg Allergy Active Medications Adderall 10 mg oral tablet 1 tablet = 10 mg, By Mouth, Daily in AM, 0 Refills, Maintenance, 12/20/21 11:26:00 EDT, Tablet, Partial fill upon patient request if the prescription is for a schedule II opioid drug. Start Date: 12/20/21 Status: Ordered [place] Thyroid = 90 mg, By Mouth, Daily, [...] 0 Refills, Soft Stop, 11/27/21 17:51:00 EDT, [facility][id number], Partial fill upon patient request if the [...] opioid drug. Start Date: 06/21/21 Status: Ordered [facility] Rx VIT D3, Refills 0, Maintenance, 06/21/21 11:57:00 EDT, Supply Start Date: 06/21/21 Status: Ordered Solu-CORTEF Act-O-Vial 100 mg injection = 100 mg, Intramuscular, Once, # 1 each, 5 Refills, Soft Stop, 10/04/21 16:01:00 EDT, Powder, [facility] #[id number], Partial fill upon patient request if the [...] Physician Member Role: PCP Address: Address: [address] [place] [address]- Care Team Related Persons Name: MARIAM RIBEIRO Address: home [address] [place] [id number]
--- OUTSIDE RECORDS SUMMARY | 2022-07-12 00:09 | XMS_ITS | Continuity of Care Document ---
Author Name Unknown Organization [facility] Address [address] [place] [id number]- Care Team Providers Care Municipal Engineer Name Role Phone Angelica Jain NP Primary Care Physician [place] [facility] [place] 11/27/21 - 12/27/21 [facility] Diabetes [address] [place] [id number] Allergies, Adverse Reactions, Alerts Substance Reaction Severity Status [place] Active Egg Allergy Active Medications Adderall 10 mg oral tablet 1 tablet = 10 mg, By Mouth, Daily in AM, 0 Refills, Maintenance, 12/20/21 11:26:00 EDT, Tablet, Partial fill upon patient request if the prescription is for a schedule II opioid drug. Start Date: 12/20/21 Status: Ordered [place] Thyroid = 90 mg, By Mouth, Daily, [...] 0 Refills, Soft Stop, 11/27/21 17:51:00 EDT, [facility] #[id number], Partial fill upon patient request if the [...] opioid drug. Start Date: 06/21/21 Status: Ordered [facility] [place] Rx VIT D3, Refills 0, Maintenance, 06/21/21 11:57:00 EDT, Supply Start Date: 06/21/21 Status: Ordered Solu-CORTEF Act-O-Vial 100 mg injection = 100 mg, Intramuscular, Once, # 1 each, 5 Refills, Soft Stop, 10/04/21 16:01:00 EDT, Powder, [facility] #[id number], Partial fill upon patient request if the [...] Physician Member Role: PCP Address: Address: [address] [place] [address]- Care Team Related Persons Name: MARIAM RIBEIRO Address: home [address] [place] [id number]
--- OUTSIDE RECORDS SUMMARY | 2022-07-12 00:09 | XMS_ITS | Continuity of Care Document ---
Author Name Unknown Organization [facility] Address Unknown Care Team Providers Care Stock Turner Name Role Phone Cristobal ASSOCIATE DESIGNER, Angelica Primary Care Physician Encounter [facility] [place] Date(s): 07/12/21 - 08/11/21 [facility] Allergies, Adverse Reactions, Alerts No Known Medication Allergies Substance Reaction Severity Status [place] Active Medications [place] Thyroid = 90 mg, By Mouth, Daily, [...] opioid drug. Start Date: 06/21/21 Status: Ordered [facility] Rx VIT D3, Refills 0, Maintenance, 06/21/21 11:57:00 EDT, Supply Start Date: 06/21/21 Status: Ordered Problem List Condition Effective Dates Status Health Status Inform ant Obese class II(Confirmed) Active Social History Social History Type Response Smoking Status Never (less than 100 in lifetime) entered on: 06/24/21 Sex
--- OUTSIDE RECORDS SUMMARY | 2022-07-12 00:09 | XMS_ITS | Continuity of Care Document ---
Author Name Unknown Organization [facility] Diabetes Address [address] [place] [id number]- Care Team Providers Care Director Check Name Role Phone Angelica Jain NP Primary Care Physician En[place] [facility] [place] [facility] [place]s): 10/04/21 - 11/03/21 [facility]ocr[facility]ology [facility] Diabetes [address] [place] [id number] Attending Physician: Admtr, [id number] Admitting Physician: Admtr, [id number] Referring Physician: Admtr, [id number] Allergies, Adverse Reactions, Alerts No Known Medication Allergies Substance Reaction Severity Status [place] Active Medications [place] Thyroid = 90 mg, By Mouth, Daily, [...] Refills, Soft Stop, 10/04/21 16:01:00 EDT, Powder, [facility] #[id number], Partial fill upon patient request if the [...] Team Personnel Name: Angelica Jain NP Address: [address] [place] [id number]
--- OUTSIDE RECORDS SUMMARY | 2022-07-12 00:09 | XMS_ITS | Continuity of Care Document ---
Author Name Unknown Organization [facility]ocr[facility] Diabetes Address [address] [place] [phone]- Care Team Providers Care Dried Fruit Washer Name Role Phone Angelica Jain NP Primary Care Physician [place] [facility] [place] 11/27/21 - 12/27/21 [facility]ocr[facility] Diabetes [address] [place] [id number] Allergies, Adverse Reactions, Alerts Substance Reaction Severity Status [place] Active Egg Allergy Active Medications Adderall 10 mg oral tablet 1 tablet = 10 mg, By Mouth, Daily in AM, 0 Refills, Maintenance, 12/20/21 11:26:00 EDT, Tablet, Partial fill upon patient request if the prescription is for a schedule II opioid drug. Start Date: 12/20/21 Status: Ordered [place] Thyroid = 90 mg, By Mouth, Daily, [...] 0 Refills, Soft Stop, 11/27/21 17:51:00 EDT, [facility] #[id number], Partial fill upon patient request if the [...] opioid drug. Start Date: 06/21/21 Status: Ordered [facility] Rx VIT D3, Refills 0, Maintenance, 06/21/21 11:57:00 EDT, Supply Start Date: 06/21/21 Status: Ordered Solu-CORTEF Act-O-Vial 100 mg injection = 100 mg, Intramuscular, Once, # 1 each, 5 Refills, Soft Stop, 10/04/21 16:01:00 EDT, Powder, [facility] #[id number], Partial fill upon patient request if the [...] Physician Member Role: PCP Address: Address: [address] [place] [address]- Care Team Related Persons Name: MARIAM RIBEIRO Address: home [address] [place] [id number]
--- NOTE | 2022-07-12 00:33 | PC.NURSE ---
Pt reports feeling better with use of epi pen, denies SOB or dyspnea at this time. No swelling noted to face, tongue or throat. Pt expressing willingness to leave. This RN educated pt on the importance of being seen by the doctor for evaluation after allergic reaction. Pt with appt schedueld for tomorrow to follow up with PCP about rxns. Pt declined to stay in ED at this time. Pt encouraged to return if any worsening symptoms occur, pt verbalized understanding.
== END 2022-07-12 00:37 | disposition left against medical advice (07) ==
PROVIDERS: Emergency Provider Emergency Medicine; PCP Family Medicine
DX: R06.02 Shortness of breath (principal)
CPT/HCPCS: 99281

== ENCOUNTER 2022-12-11 | Emergency (ER) | payer MEDICARE, MEDICAID, SELFPAY ==
[2022-12-11 00:11] VITALS: BP 140/79; PULSE 94; RESP 18; TEMP 36.6; O2SAT 100; BMI 32.1
[2022-12-11 01:02] VITALS: BP 130/63; PULSE 95; RESP 19; O2SAT 100
--- NOTE | 2022-12-11 01:06 | ED_ITS ---
HPI - Allergic Reaction General Chief complaint: Allergic Reaction Stated complaint: ?Allergic reaction Time Seen by Provider: 12/11/22 00:57 Source: patient Mode of arrival: ambulatory Limitations: no limitations History of Present Illness HPI narrative: 42 yo female with PMH of allergies who carries epi pen ate cheese whiz earlier and developed tingling on lip and then swelling she was smart and took her epi pen in R lateral thigh around 1145 and a montelukast. Her symptoms have improved and are resolved now. She feels back to normal now. She has had this before. MD complaint: allergic reaction and facial swelling Onset (ago): hour(s) (few) Exposure: food Symptoms: facial swelling and lip swelling Severity: moderate Treatment prior to arrival: epinephrine Previous Allergic Reaction History: anaphylaxis and angioedema Related Data Home Medications Medication Instructions Recorded Confirmed hydrocortisone 5 mg tablet 0 mg PO 10/05/21 thyroid (pork) 90 mg tablet 90 mg PO DAILY 10/05/21 ([place] Thyroid) dextroamphetamine-amphetamine ER 1 cap PO DAILY 04/24/22 15 mg 24hr capsule,extend release Previous Rx's Medication Instructions Recorded montelukast 10 mg tablet 10 mg PO BEDTIME #30 tabs 07/05/22 (Singulair) epinephrine 0.3 mg/0.3 mL 0.3 mg (0.3 mL) IM Q10M PRN 12/11/22 injection, auto-injector anaphylaxis #2 ea Allergies Allergy/AdvReac Type Severity Reaction Status Date / Time egg [EGG] AdvReac Unknown UPSET Verified 07/05/22 21:48 STOMACH diphenhydramine AdvReac Unknown Verified 12/11/22 01:10 [From Benadryl] Review of Systems Review of Systems: Constitutional : No Fever, No Chills ENT/Mouth : positive oral swelling, pos Hoarseness, No Swallowing Difficulty Eyes: No Eye Pain, No Swelling, No Redness Cardiovascular : No Chest Pain, No SOB Respiratory : No Cough, No Sputum, No Wheezing, No Smoke Exposure, No Dyspnea Gastrointestinal : No Nausea, No Vomiting, No Diarrhea, No abdominal Pain Genitourinary : No Dysuria, No Urinary Frequency, No Hematuria Musculoskeletal : No joint pain, No Myalgias, No Joint Swelling Skin : No Skin Lesions, positive rash Neuro : No Weakness, No Numbness, No Headache Psych : No Anxiety/Panic, No Depression Heme/Lymph: No Bruising, No Lymphadenopathy Endocrine : No Polyuria, No Polydipsia All other systems reviewed and are negative COUNTS INCLUDE 234 BEDS AT THE [facility] Past Medical History Attestation statement: The following information was validated with the patient. Source: old records reviewed Medical History PTSD (post-traumatic stress disorder) Hypoglycemia Julianne's thyroiditis Autism ADHD Surgical History H/O myringotomy Social History Social History (Updated 12/11/22 @ 01:16 by Violeta Alvarado DO) Patient Tobacco Use Status: Never used Tobacco Physical Exam ED Vital Signs: Vital Signs - 24 hr 12/11/22 00:11 Temperature 97.9 F Pulse Rate 94 Respiratory Rate 18 Blood Pressure 140/79 H Pulse Oximetry 100 Oxygen Delivery Method Room Air BMI result Body Mass Index 32.1 Appearance: Alert. Oriented X3. No acute distress. Eyes: Pupils equal, round and reactive to light. ENT: Pharynx normal. no angioedema, normal voice Neck: Normal inspection. Neck supple. CVS: Normal heart rate and rhythm. Pulses normal. Respiratory: No respiratory distress. Breath sounds normal. Abdomen: Soft and non-tender. Skin: Skin warm and dry. Normal skin color. Normal skin turgor. Extremities: No lower extremity edema. No calf ttp Neuro: Oriented X 3. No motor deficit. No sensory deficit. Medical Decision Making Medical Decision Making MDM Narrative: 42 yo female hx of allergies in the past now with c/o angioedema at home possibly related to cheese whiz - she responded to self treated epi - will give IV steroids and pepcid 145pm will be 2 hours post epi if she is still symptom free will DC home with another epi pen. Differential Diagnosis Differential Diagnoses: The differential diagnosis associated with the presentation includes angioedema, anaphylaxis Admission/Observation Consideration of admission/observation: Escalation of care including admission/observation considered symptoms resolved not toxic can be managed at home Independent Historian Clinical information obtained from an independent historian. History obtained from or confirmed by: Spouse External Record Review External record reviewed: Inpatient record Prescription Management I considered prescription management with: Other (epi pen) Discharge Plan Discharge Clinical Impression: Angioedema Qualifiers: Encounter type: initial encounter Qualified Code(s): T78.3XXA - Angioneurotic edema, initial encounter Patient Disposition: Home, Self-Care Instructions: Angioedema (ED) Additional Instructions: return for worsening symptoms - swelling, difficulty breathing. please carry your epi pen with you Prescriptions: New epinephrine 0.3 mg/0.3 mL auto-injector 0.3 mg IM Q10M PRN (Reason: anaphylaxis) Qty: 2 0RF Rx Instructions: for 2 doses No Action montelukast [Singulair] 10 mg tablet 10 mg PO BEDTIME Qty: 30 0RF thyroid (pork) [[place] Thyroid] 90 mg tablet 90 mg PO DAILY hydrocortisone 5 mg tablet 0 mg PO dextroamphetamine-amphetamine 15 mg capsule,extended release 24hr 1 cap PO DAILY
[2022-12-11] MEDS: Famotidine/PF 20 MG/2 ML VIAL IVPUSH (01:10)
[2022-12-11] MEDS: methylPREDNISolone Sod Succ 125 MG/2 ML VIAL IVPUSH (01:10)
--- NOTE | 2022-12-11 01:24 | PC.NURSE ---
pt medicated per apr. pt denies cp/sob/n/v/d. airway patent. call snow within reach.
[2022-12-11 02:04] VITALS: BP 109/66; PULSE 76; RESP 18; O2SAT 100
== END 2022-12-11 02:04 | disposition home or self-care (01) ==
PROVIDERS: Emergency Provider Emergency Medicine
DX: T78.3XXA Angioneurotic edema, initial encounter (principal); T78.1XXA Other adverse food reactions, not elsewhere classified, initial encounter; X58.XXXA Exposure to other specified factors, initial encounter
CPT/HCPCS: 96374; 96375; 99284; J2930

== ENCOUNTER 2023-06-28 03:01 | Emergency (ER) | payer MEDICARE, MEDICAID, SELFPAY ==
--- NOTE | ~2023-06-28 | US_ITS ---
EXAMINATION: US PELVIS CLINICAL INFORMATION: Excessive vaginal bleeding. LMP 05/25/2023. COMPARISON: None available. TECHNIQUE: Ultrasound of the pelvis is performed using both transabdominal and transvaginal transducers along with Doppler. Transvaginal imaging is performed due to inadequate visualization transabdominally. FINDINGS: Anteverted uterus measuring 7.4 x 3.9 x 4.7 cm. There is a 0.9 x 0.7 x 1.4 cm intramural lesion in the upper anterior uterus and a 1.4 x 1.4 x 1.7 cm intramural lesion in the upper posterior fundus, most suggestive of fibroids. The endometrium measures 0.6 cm in thickness without discrete focal abnormality. No associated vascularity within the endometrial canal. The ovaries demonstrate increased number of predominantly peripherally located follicles in keeping with history of polycystic ovarian syndrome. The right ovary measures 3.3 x 2 x 1.9 cm, 6.6 mL. The left ovary measures 3.1 x 1.9 x 3.4 cm, 10.5 mL. There is preserved flow to both ovaries on color and spectral Doppler at the moment of this examination. No adnexal mass. No free fluid. US/US pelvic and transvaginal IMPRESSION: 1. Increased number of peripherally oriented follicles that could indicate polycystic ovarian syndrome in the appropriate clinical context. 2. Intramural fibroids as above.
[2023-06-28 03:08] VITALS: BP 127/98; PULSE 97; RESP 18; TEMP 37.2; O2SAT 100; BMI 36.9
[2023-06-28 03:28] LABS: MANUAL DIFF FLAG NO
[2023-06-28 03:29] LABS: Basophils Absolute Auto 0.1 X10*3/uL (0.0-0.2); Basophils Percent Auto 0.8 % (0-2); Eosinophils Absolute Auto 0.2 X10*3/uL (0.0-0.4); Eosinophils Percent Auto 2.5 % (0-4); Hematocrit 38.7 % (37.0-47.0); Hemoglobin 12.6 g/dl (12.0-16.0); Imm Gran Abs Auto 0.03 X10*3/uL (0.00-0.03); Imm Gran Pct Auto 0.4 % (0.0-0.4); Lymphocytes Absolute Auto 2.8 X10*3/uL (1.2-4.9); Lymphocytes Percent Auto 33.1 % (20-40); Mean Corpuscular HGB Conc 32.6 g/dl (31.0-35.0); Mean Corpuscular Hemoglobin 29.5 pg (27.0-33.0); Mean Corpuscular Volume 90.6 fL (80.0-98.0); Mean Platelet Volume 9.4 fL (9.4-12.3); Monocytes Absolute Auto 0.7 X10*3/uL (0.1-1.2); Monocytes Percent Auto 8.2 % (2-11); Neutrophils Absolute Auto 4.7 x10*3/uL (2.0-8.3); Platelet Count 334 X10*3/uL (160-400); Red Blood Count 4.27 X10*6/uL (4.20-5.50); White Blood Count 8.6 X10*3/uL (4.8-10.8)
[2023-06-28 03:51] LABS: Alanine Aminotransferase 16 U/L (0-31); Albumin Level 4.4 g/dL (3.5-5.0); Alkaline Phosphatase 86 U/L (39-117); Anion Gap 15 (12-20); Aspartate Amino Transferase 16 U/L (5-31); Bilirubin Total 0.3 mg/dL (0.0-1.0); Blood Urea Nitrogen 11 mg/dL (9-16); Calcium 9.6 mg/dL (8.4-10.2); Carbon Dioxide 24 mmol/L (22-29); Chloride 106 mmol/L (96-108); Estimated Glomerular Filt Rate > 60; Glucose Random 97 mg/dL (60-115); Potassium 4.1 mmol/L (3.3-5.1); Sodium 141 mmol/L (135-145)
[2023-06-28 03:53] LABS: HCG Quantitative < 2 mIU/mL
[2023-06-28 04:25] VITALS: BP 119/75; PULSE 79; RESP 20; TEMP 36.8; O2SAT 99
[2023-06-28 06:22] VITALS: BP 113/74; PULSE 93; RESP 16; TEMP 36.8; O2SAT 98
--- NOTE | 2023-06-28 06:24 | PC.NURSE ---
pt reports going to the bathroom and blood was noted but much less than before. reports blood loss was similar to a regular period now
--- NOTE | 2023-06-28 06:45 | ED.GENADULT ---
HPI - General Adult General Chief complaint: Vaginal Bleeding Stated complaint: excessive menstruation Time Seen by Provider: 06/28/23 06:39 Source: patient Mode of arrival: ambulatory Limitations: no limitations History of Present Illness HPI narrative: Patient is a 42 year old assigned female at with a history of PCOS presenting to the emergency department today with heavy menstrual bleeding. Patient states that this morning she noticed very heavy bleeding and clot the size of the palm of her hand. Patient states that this is not time for her usual cycle. Patient denies any dizziness, lightheadedness, abdominal pain, nausea, vomiting, fever, chills, blurry vision, double vision, loss of vision, chest pain, difficulty breathing, shortness of breath, back pain, night sweats, pain with urination, increased urinary frequency, increased urinary urgency, blood in her stool, syncope or a near syncopal episode, recent trauma or falls, bowel incontinence, bladder incontinence, bowel retention, bladder retention, or any other complaints at this time. Onset (ago): hour(s) Relieving factors: none Exacerbating factors: none Associated symptoms: denies other symptoms Treatments prior to arrival: none Related Data Home Medications ?Medication ?Instructions ?Recorded ?Confirmed hydrocortisone 5 mg tablet 0 mg PO 10/05/21 thyroid (pork) 90 mg tablet 90 mg PO DAILY 10/05/21 ([place] Thyroid) dextroamphetamine-amphetamine ER 1 cap PO DAILY 04/24/22 15 mg 24hr capsule,extend release Previous Rx's ?Medication ?Instructions ?Recorded montelukast 10 mg tablet 10 mg PO BEDTIME #30 tabs 07/05/22 (Singulair) epinephrine 0.3 mg/0.3 mL 0.3 mg (0.3 mL) IM Q10M PRN 12/11/22 injection, auto-injector anaphylaxis #2 ea Allergies Allergy/AdvReac Type Severity Reaction Status Date / Time egg [EGG] AdvReac Unknown UPSET Verified 06/28/23 03:09 STOMACH diphenhydramine AdvReac Unknown Verified 06/28/23 03:09 [From Benadryl] Review of Systems Constitutional: Constitutional: Reports no additional constitutional complaints, Denies chills, Denies fever(s) and Denies night sweats Eyes: Eyes: Reports no additional eye complaints, Denies blurry vision, Denies change in vision, Denies diplopia, Denies eye discharge, Denies loss of vision and Denies eye pain ENT: Denies dizziness Cardiovascular: Cardiovascular: Reports no additional cardiovascular complaints, Denies chest pain, Denies lightheadedness, Denies Loss of Consciousness and Denies dyspnea Respiratory: Respiratory: Reports no additional respiratory complaints and Denies dyspnea Gastrointestinal: Gastrointestinal: Reports no additional gastrointestinal complaints, Denies abdominal pain, Denies melena, Denies hematochezia, Denies change in bowel habits and Denies change in stool character Genitourinary: Genitourinary: Denies hematuria, Denies urinary frequency, Denies dysuria, Denies urinary incontinence, Denies urinary hesitancy and Denies urinary urgency Comments: vaginal bleeding Musculoskeletal: Musculoskeletal: Reports no additional musculoskeletal complaints, Denies numbness and Denies tingling Neurologic: Denies dizziness, Denies loss of vision, Denies numbness and Denies tingling Psychiatric: Psychiatric: Reports no additional psychiatric complaints Endocrine: Endocrine: Reports no additional endocrine complaints Hematologic/Lymphatic: Hematologic/Lymphatic: Reports no additional hematologic/lymphatic complaints Allergic/Immunologic: Allergic/Immunologic: Reports no additional allergic/immunologic complaints [facility] Past Medical History Attestation statement: The following information was validated with the patient. Source: old records reviewed and nursing notes reviewed Medical History PTSD (post-traumatic stress disorder) Hypoglycemia Julianne's thyroiditis Autism ADHD Surgical History H/O myringotomy Social History Social History Patient Tobacco Use Status: Never used Tobacco Smoked in Last 30 Days: No Use of substances other than those prescribed or required for medical reasons: No Advance Directives: No Advance Directives Information Provided: No Patient : No Physical Exam ED Vital Signs: Vital Signs - 24 hr 06/28/23 03:08 06/28/23 04:25 06/28/23 06:22 Temperature 98.9 F 98.2 F 98.2 F Pulse Rate 97 79 93 Respiratory Rate 18 20 16 Blood Pressure 127/98 H 119/75 113/74 Pulse Oximetry 100 99 98 Oxygen Delivery Method Room Air Room Air Room Air BMI result Body Mass Index 36.9 Const General: cooperative, no acute distress, alert and awake Nutritional Appearance: well nourished Orientation/consciousness: patient oriented x3 Limitations: no limitations HENMT Head: Yes normal to inspection and Yes atraumatic Ears: hearing grossly normal bilaterally and external ears normal General nose exam: Normal external nose present, no nasal discharge noted and no epistaxis Face and sinus: Yes normal facial exam, No abrasion and No laceration Mouth: Normal oral and palatal mucosa present, no drooling and no muffled voice Eyes General: appearance normal, both eyes and all related structures Periorbital: periorbital findings normal Eyelids: Yes eyelids normal Conjunctivae: conjunctivae normal Pupils: Equal, round and reactive pupils present EOM: EOMs intact bilaterally Neck Neck: Yes normal visual inspection, Yes full ROM and Yes no lymphadenopathy Chest Chest palpation & inspection: normal inspection of the chest Resp Effort & Inspection: normal respiratory effort and able to speak in complete sentences GI Inspection: Yes normal to inspection Neuro General: patient oriented x3 and moves all extremities Cranial nerves: Yes Equal, round and reactive pupils present Cognition (Neuro): normal cognition Motor exam (neuro): 5/5 motor strength present throughout Sensory Exam: Normal double simultaneous stimulation for sensation Coordination: [id number] test normal Extrem General: Yes normal to inspection, Yes full ROM and Yes capillary refill normal Psych Appearance: grossly normal Mental Status: mental status grossly normal Affect: normal affect Attitude: cooperative Thought process: Normal thought process present Thought content: Normal thought content present Insight: Good insight present (Psych) Medical Decision Making Medical Decision Making MDM Narrative: Patient is a 42 year old assigned female at with a history of PCOS presenting to the emergency department today with vaginal bleeding. Patient's physical exam was unremarkable. Patient's blood work was unremarkable. Patient's pelvic/transvaginal US showed PCOS and intramural fibroids. I explained my physical exam findings as well as all test results to the patient. I answered all questions asked by the patient. I stressed the importance of the patient taking her medication as prescribed. I stressed the importance of the patient following up with her primary care provider and an OBGYN. I stressed the importance of the patient returning to the emergency department immediately if her symptoms were to worsen or if she were to develop any dizziness, shortness of breath, difficulty breathing, chest pain, blurry vision, loss of vision, nausea, vomiting, abdominal pain, fever, chills, back pain, or any other complaints. Patient verbalized agreement and understanding with this treatment plan and discharge. Differential Diagnosis Differential Diagnoses: The differential diagnosis associated with the presentation includes Vaginal bleeding Uterine fibroid Dysfunctional uterine bleeding Admission/Observation Consideration of admission/observation: Escalation of care including admission/observation considered Patient would have been admitted to the hospital had her work up had any findings where hospital admission was appropriate and her clinical presentation warranted hospital admission Lab Data MDM Lab Attestation statement: I reviewed the patient's lab results. My interpretation of these results are in the MDM Rationale portion of this note. 06/28/23 03:24 06/28/23 03:24 Labs: Lab Results 06/28/23 Range/Units 03:24 WBC 8.6 (4.8-10.8) X10*3/uL RBC 4.27 (4.20-5.50) X10*6/uL Hgb 12.6 (12.0-16.0) g/dl Hct 38.7 (37.0-47.0) % MCV 90.6 (80.0-98.0) fL MCH 29.5 (27.0-33.0) pg MCHC 32.6 (31.0-35.0) g/dl RDW 13.0 (11.0-16.0) % Plt Count 334 (160-400) X10*3/uL MPV 9.4 (9.4-12.3) fL Immature Gran % (Auto) 0.4 (0.0-0.4) % Neut % (Auto) 55.0 (45-73) % Lymph % (Auto) 33.1 (20-40) % [place] % (Auto) 8.2 (2-11) % Eos % (Auto) 2.5 (0-4) % Baso % (Auto) 0.8 (0-2) % Lymph # (Auto) 2.8 (1.2-4.9) X10*3/uL [place] # (Auto) 0.7 (0.1-1.2) X10*3/uL Eos # (Auto) 0.2 (0.0-0.4) X10*3/uL Baso # (Auto) 0.1 (0.0-0.2) X10*3/uL Abs Immat Gran (auto) 0.03 (0.00-0.03) X10*3/uL Absolute Neuts (auto) 4.7 (2.0-8.3) x10*3/uL Absolute Nucleated RBC 0.000 (0.0-0.012) X10*3/uL Nucleated RBC % (auto) 0.0 (0.0-0.2) /100WBC Sodium 141 (135-145) mmol/L Potassium 4.1 (3.3-5.1) mmol/L Chloride 106 (96-108) mmol/L Carbon Dioxide 24 (22-29) mmol/L Anion Gap 15 (12-20) BUN 11 (9-16) mg/dL Creatinine 0.72 (0.5-1.4) mg/dL Estim Creat Clear Calc 125.0 Estimated GFR > 60 Random Glucose 97 (60-115) mg/dL Calcium 9.6 (8.4-10.2) mg/dL Total Bilirubin 0.3 (0.0-1.0) mg/dL AST 16 (5-31) U/L ALT 16 (0-31) U/L Alkaline Phosphatase 86 (39-117) U/L Total Protein 8.0 (6.5-8.0) g/dL Albumin 4.4 (3.5-5.0) g/dL Beta HCG, Quant < 2 mIU/mL Independent Interpretation I performed an independent interpretation of an: Ultrasound Interpretation: My interpretation is in agreement with the radiologist's impression of this imaging study. EXAMINATION: US PELVIS CLINICAL INFORMATION: Excessive vaginal bleeding. LMP 05/25/2023. COMPARISON: None available. TECHNIQUE: Ultrasound of the pelvis is performed using both transabdominal and transvaginal transducers along with Doppler. Transvaginal imaging is performed due to inadequate visualization transabdominally. FINDINGS: Anteverted uterus measuring 7.4 x 3.9 x 4.7 cm. There is a 0.9 x 0.7 x 1.4 cm intramural lesion in the upper anterior uterus and a 1.4 x 1.4 x 1.7 cm intramural lesion in the upper posterior fundus, most suggestive of fibroids. The endometrium measures 0.6 cm in thickness without discrete focal abnormality. No associated vascularity within the endometrial canal. The ovaries demonstrate increased number of predominantly peripherally located follicles in keeping with history of polycystic ovarian syndrome. The right ovary measures 3.3 x 2 x 1.9 cm, 6.6 mL. The left ovary measures 3.1 x 1.9 x 3.4 cm, 10.5 mL. There is preserved flow to both ovaries on color and spectral Doppler at the moment of this examination. No adnexal mass. No free fluid. US/US pelvic and transvaginal IMPRESSION: 1. Increased number of peripherally oriented follicles that could indicate polycystic ovarian syndrome in the appropriate clinical context. 2. Intramural fibroids as above. Dictated By: Julissa Laws Signed By: Electronically signed by Julissa Laws 06/28/23 0849 Radiology Impression Discussion of test interpretation with radiology: I have reviewed the radiologist's reading. Discharge Plan Discharge Clinical Impression: Vaginal bleeding, Fibroid, uterine Patient Disposition: Home, Self-Care Instructions: Dysfunctional Uterine Bleeding (ED) Additional Instructions: Follow up with your primary care provider and an OBGYN. Return to the emergency department immediately if your symptoms worsen or if you develop any dizziness, shortness of breath, difficulty breathing, chest pain, blurry vision, loss of vision, nausea, vomiting, abdominal pain, fever, chills, back pain, or any other complaints. Prescriptions: No Action montelukast [Singulair] 10 mg tablet 10 mg PO BEDTIME Qty: 30 0RF epinephrine 0.3 mg/0.3 mL auto-injector 0.3 mg IM Q10M PRN (Reason: anaphylaxis) Qty: 2 0RF Rx Instructions: for 2 doses thyroid (pork) [[place] Thyroid] 90 mg tablet 90 mg PO DAILY hydrocortisone 5 mg tablet 0 mg PO dextroamphetamine-amphetamine 15 mg capsule,extended release 24hr 1 cap PO DAILY Referrals: [facility] [facility] [Provider Group] (Call to establish and follow up with a primary care provider. If you already have a primary care provider, please follow up with them.) [facility] [place] Primary CareRita [Provider Group] [facility] Primary [facility],Pam [Provider Group] Gerardo Griffin MD [Physician] - (Call to establish and follow up with an OBGYN.) Print Language: Syriac
[2023-06-28 09:39] VITALS: BP 135/78; PULSE 87; RESP 18; TEMP 36.6; O2SAT 98
== END 2023-06-28 09:41 | disposition home or self-care (01) ==
PROVIDERS: Emergency Provider Student in an Organized Health Care Education/Training Program
DX: D25.9 Leiomyoma of uterus, unspecified (principal); N92.0 Excessive and frequent menstruation with regular cycle; R10.2 Pelvic and perineal pain; Z79.899 Other long term (current) drug therapy
CPT/HCPCS: 36415; 76830; 76856; 80053; 84702; 85025; 99284

== ENCOUNTER 2025-02-15 14:31 | Emergency (ER) | payer MEDICARE, MEDICAID, SELFPAY ==
[2025-02-15 14:36] VITALS: BP 141/76; PULSE 103; RESP 18; TEMP 37; O2SAT 98; BMI 39.2
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
[2025-02-15 16:05] LABS: Hematocrit 40.0 % (37.0-47.0); Hemoglobin 13.1 g/dl (12.0-16.0); Imm Gran Abs Auto 0.04 X10*3/uL (0.00-0.03); Imm Gran Pct Auto 0.4 % (0.0-0.4); Lymphocytes Absolute Auto 2.1 X10*3/uL (1.2-4.9); MANUAL DIFF FLAG NO; Mean Corpuscular HGB Conc 32.8 g/dl (31.0-35.0); Mean Corpuscular Hemoglobin 29.1 pg (27.0-33.0); Mean Corpuscular Volume 88.9 fL (80.0-98.0); NRBC Abs Auto 0.000 X10*3/uL (0.0-0.012); NRBC Pct Auto 0.0 /100WBC (0.0-0.2); Platelet Count 338 X10*3/uL (160-400); Red Blood Count 4.50 X10*6/uL (4.20-5.50); White Blood Count 11.1 X10*3/uL (4.8-10.8)
[2025-02-15 16:21] LABS: Strep A Nucleic Acid Negative (Negative)
[2025-02-15 16:28] LABS: Albumin Level 4.1 g/dL (3.5-5.0); Alkaline Phosphatase 91 U/L (39-117); Anion Gap 9 (12-20); Aspartate Amino Transferase 29 U/L (5-31); Blood Urea Nitrogen 7 mg/dL (9-16); Calcium 9.0 mg/dL (8.4-10.2); Carbon Dioxide 27 mmol/L (22-29); Chloride 109 mmol/L (96-108); Creatinine Clr Calc Pharmacy 157.3; Estimated Glomerular Filt Rate > 60; Potassium 4.0 mmol/L (3.3-5.1); Sodium 141 mmol/L (135-145); Total Protein 7.1 g/dL (6.5-8.0)
[2025-02-15 16:42] LABS: Alanine Aminotransferase 38 U/L (0-31)
[2025-02-15 16:54] LABS: Resp Syncy Virus RNA Qual PCR NEGATIVE (Negative); SARS COV2 PCR INHOUSE NEGATIVE (Negative)
[2025-02-15 17:48] VITALS: BP 141/76; PULSE 103; RESP 18; TEMP 37; O2SAT 98
--- OUTSIDE RECORDS SUMMARY | 2025-02-15 18:08 | XMS_ITS | Encounter Summary ---
Author Organization [facility] Address [address] [place] [address] Phone Care Team Providers Care Snowboarding Instructor Name Role Phone Angelica Jain GASTROENTEROLOGY MANAGER Primary Care Provider Encounter Details Date Type Department Care Team (Late st Contact Info) Description 09/18/2024 Procedure Pass MRI, [facility] [place] [address] [place], [place] [id number] Social History Tobacco Use Types Packs/Day Years Used Date Smoking Tobacco: Never Smokeless Tobacco: Never Alcohol Use Standard Drinks/Week Comments Never 0 (1 standard drink = 0.6 oz pur e alcohol) Child or Family Care Answer Date Record ed Do you have problems with on e of the following making it difficult for you to work, study, or receive health care? No 11/13/2021 Education Answer Date Recorded Are you interested in more education? Not on maulik e 11/24/2023 Are you concerned about learning? Not on file 11/24/2023 No 11/24/2023 No 11/24/2023 Food Answer Date Recorded Within the past 6 months we worried whether our food would run out before we got money to buy more. Sometimes True 11/13/2021 Within the past 6 months the food we bought just didn't last and we didn't have enough money to get more. I choose not to answer 11/13/2021 Residential Stability Answer Date Recor ded What is your housing situation today? I have rosy mcdaniels 11/13/2021 How many times have you move d in the past 12 months? Zero (I did not move) 11/13/2021 Paying for Meds Answer Date Recorded Do you have trouble paying for medicines? Yes 11/13/2021 Paying Utility Bills Answer Date Record ed Do you have trouble paying your heating or elect ricity bill? Yes 11/13/2021 Transportation Answer Date Recorded Has the lack of transportati on kept you from medical appointments or from getting medications? Yes 11/13/2021 Unemployment Answer Date Recorded Are you currently unemployed or working on a part-time or temporary basis, and looking for work? I choose not to answer 11/13/2021 Digital Access Answer Date Recorded No 07/12/2022 No 07/12/2022 Reliable internet access at home? Not on file 07/12/2022 Device with a working camera? Not on file Intimate Partner Violence Answer Date R ecorded Are you denied basic needs s uch as food, clothing, or medical care? No 01/23/2023 In the past 12 months have y ou been in a relationship with a person who hurts, threatens, or tries to control you? No 01/23/2023 Are you denied basic needs s uch as food, clothing, or medical care? No 01/23/2023 In the past 12 months have y ou been in a relationship with a person who hurts, threatens, or tries to control you? No 01/23/2023 Comments No Sex and Gender Information Value Date Recorded Sex Assigned at Female 02/20/2021 11:14 AM EST Legal Sex Female 11:06 AM EST Gender Identity Non-binary 02/20/2021 11:14 AM EST Sexual Orientation Pansexual 04/17/2023 8: 49 PM EST Sexual Orientation Bisexual 04/17/2023 8: 49 PM EST documented as of this encounter Plan of Treatment Upcoming Encounters Date Type Department Care Team ([facility] st Contact Info) Description 03/26/2025 1:45 PM EST Office Visit [facility] [address] [place] [phone] Unknown, Unknown, Kathleen Palma PA-C [address] [place] [phone] [email or web address] documented as of this encounter Visit Diagnoses Not on filedocumented in this encounter Additional Health Concerns Assessment Noted Time PHQ-2 Depression Total Score: 2 11/14/19 22 8:56 AM EDT documented as of this encounter Care Teams Snowboarding Instructor Relationship Specialty Start Date End Date Angelica Jain NP [address] [place] [address] [place] [address] PCP - General Family Medicine 10/20/21 documented as of this encounter Additional Source Comments The information contained in this document represents components of the legal health record. It is not the complete legal health record.[facility]
--- OUTSIDE RECORDS SUMMARY | 2025-02-15 18:09 | XMS_ITS | Clinical Summary ---
Author Organization [facility] Address [address] [address] Phone Care Team Providers Care Regeneration Operator Name Role Phone Angelica Jain DRESSER TENDER Primary Care Provider Allergies Active Allergy Reactions Criticality Noted Date Comments Cat's Claw (Uncaria Tomentosa) 07/18/2017 Clindamycin GI Upset,Nausea and/or Vomiting Low 04/25/2021 Dandelion (Taraxacum Officinale) 01/17/2023 Dog Dander 07/18/2017 Feathers 07/18/2017 House Dust Mite Palpitations,Other (See Comments),Mental Status Change,Fatigue,Joint Pain Low 03/29/2021 Mental Status Change: Slow Cognition, Mood Changes Other: Slow Muscle Movements Mold Extracts 07/18/2017 Mold Extracts Palpitations,Other (See Comments),Mental Status Change,Fatigue,Joint Pain Low 03/29/2021 Mental Status Change: Slow Cognition, Mood Changes Other: Slow Muscle Movements Medications thyroid, pork, 60 mg Tab 75 mg every morning. Active HYDROCORTISONE ORAL Active amitriptyline (ELAVIL) 10 MG tablet Take 10 mg by mouth nightly at bedtime. 3 Active cetirizine (ZYRTEC) 10 MG tablet Take 10 mg by mouth nightly at bedtime. 3 Active famotidine (PEPCID) 20 MG tablet Take 20 mg by mouth 2 (two) times a day. 3 Active montelukast (SINGULAIR) 10 mg tablet Take 10 mg by mouth nightly at bedtime. 3 Active EPINEPHrine 0.3 mg/0.3 mL auto-injector Inject 0.3 mg into the muscle as needed for anaphylaxis. 3 Active hydrocortisone (CORTEF) 5 MG tabletIndications: adrenocortical insufficiency Take 2 tablets (10 mg total) by mouth 3 (three) times a day. Take 10 mg AM, 5 mg noon, 5 mg PM. Indications: decreased function of the adrenal gland 3 Active Active Problems Problem Noted Date Diagnosed Date Status post bilateral mastectomy 01/24/2023 Gender dysphoria in adult 01/23/2023 Post-operative nausea and vomiting 01/23/2023 Assessment & Plan (01/23/2023 8:39 PM EST): We will give Zofran and Compazine. S/P bilateral mastectomy 01/23/2023 Assessment & Plan (01/23/2023 8:40 PM EST): Management per the plastic surgery team. Dr. Sanchez requested that the patient ambulate regularly. Drains in place. PTSD (post-traumatic stress disorder) OCD (obsessive compulsive disorder) Macromastia Autism Resolved Problems Problem Noted Date Diagnosed Date Resolved Date Dental infection 06/13/2021 01/23/2023 Adrenal insufficiency 2024 Assessment & Plan (01/23/2023 8:39 PM EST): Nausea and vomiting is most likely related to the surgery, but I feel the benefit of hydrocortisone burst probably outweighs the risk. When nausea has resolved they can go back to their regular oral hydrocortisone dosage. Immunizations Immunization Administration Dates Next Due COVID-19 Moderna Spikevax Vaccine + 01/24/2023 Influenza Quadrivalent Preservative Free IM 08/2022,03/09/2021 Tdap 07/06/2014 Family History * Patient is adopted Medical History Relation Comments Cancer Father Diabetes Mother Heart disease Mother Stroke Mother Relation Status Comments Father Mother Social History Tobacco Use Types Packs/Day Years [...] your housing situation today? I have rosy sing 11/13/2021 How many times have you move [...] Orientation Bisexual 04/17/2023 8: 49 PM EST Last Filed Vital Signs Vital Sign Reading Time Taken Comments Blood Pressure 131/75 09/18/2024 1:05 PM EDT Pulse 135 09/18/2024 1:05 PM EDT Temperature 37.1 C (98.7 F) 01/24/2023 3:20 PM EST Respiratory Rate 18 01/24/2023 3:20 PM EST Oxygen Saturation 97% 01/24/2023 3:20 PM EST Inhaled Oxygen Concentration - - Weight 115.7 kg (255 lb) 09/18/2024 1:05 PM EDT Height 167.6 cm (5' 6 ) 09/18/2024 1:05 PM EDT Body Mass Index 41.16 09/18/2024 1:05 PM EDT Plan of Treatment Upcoming Encounters Date Type Department Care Team (Late st Contact Info) Description 03/26/2025 1:45 PM EST Office Visit [facility] [address] [place] [phone] Unknown, Unknown, Kathleen Palma, PAIvonneC [address] [place] [address] [email or web address] Health Maintenance Due Date Last Done Comments HEPATITIS C SCREENING 07/31/1999 HIV ONE-TIME SCREENING (18-65 YEARS) 07/31/1999 DEPRESSION SCREENING 11/13/2022 11/13/2021 SCREENING FOR DIABETES 06/01/2024 06/01/2021 Adult Td,Tdap Booster 07/06/2024 07/06/2014 INFLUENZA VACCINE (#1) 2024 01/24/2023, 2021 COVID-19 VACCINE (5 - 2025- season) 2024 01/24/2023, 03/09/2021, 06/24/2020, Additional history exists PAP SMEAR 10/13/2026 10/14/2023 SMOKING STATUS SCREENING (Once After 26 Yrs) Completed 10/15/2024 HEPATITIS A VACCINES Aged Out No long er eligible based on patient's age to complete this topic HIB VACCINES Aged Out No longer eligi ble based on patient's age to complete this topic MENINGOCOCCAL VACCINES (ACWY) Aged Out No longer eligible based on patient's age to complete this topic MENINGOCOCCAL VACCINES (B) Aged Out N o longer eligible based on patient's age to complete this topic PNEUMOCOCCAL VACCINES (0-49 years) Aged Out No longer eligible based on patient's age to complete this topic Medical Devices Not on file Procedures Procedure Name Priority Date/Time Associated Diagnosis Comments PAP TEST Routine 10/14/2023 12:00 AM EDT from Last 3 Months or Most Recently Relevant to Health Maintenance Results * Pap Test (10/14/2023 12:00 AM EDT) Report [address] [address] Hydrography Teacher: Verna Styles MD COMMERCIAL UNDERWRITER Cytology Report FINAL DIAGNOSIS A. PAP SMEAR (THIN PREP) CE: SPECIMEN ADEQUACY: Satisfactory for evaluation; transformation zone present. INTERPRETATION: NEGATIVE FOR INTRAEPITHELIAL LESION OR MALIGNANCY. This specimen was analyzed by the automated ThinPrep Imaging System (Mobile-XL.) and the selected sterling were reviewed by a mobile marketing manager. Electronically Signed Out By: TANO Haas(ASCP) The Pap test is a screening test primarily for squamous cancers and precursors and has associated false-negative and false-positive results. New technologies such as liquid-based preparations may decrease but will not eliminate all false-negative results. Regular sampling and follow-up of unexplained clinical signs and symptoms are recommended to minimize false negative results. PROCEDURES/ADDENDA HPV Testing (Requested) Ordered Date: 10/16/2023 A. PAP SMEAR (THIN PREP) CE: Human Papilloma Virus Test NEGATIVE for high-risk Human Papilloma Virus types 16, 18, 45 and the Other high risk probe set (Includes 31, 33, 35, 39, 51, 52, 56, 58, 59, 66, 68) Note: Testing performed by [employer] Onclarity HR-HPV analysis. Clinical correlation is advised. This HPV test was performed at [facility], [address] [place] [address]. This test has been FDA approved for both SurePath and ThinPrep cervical cytology specimens. The accuracy and precision of this test for all other specimen sources has been verified in the Cytopathology Laboratory of the [facility] and has not been cleared or approved by the U.S. Food and Drug Administration. Clinical correlation is advised. CLINICAL HISTORY Date of Last Menstrual Period: 09-21-2023 Other Clinical Conditions: Screening Pap SPECIMEN SOURCE A: PAP SMEAR (THIN PREP) CE Patient Name: HEIDI MARIE : 1980 (Age: 43) Sex: F Institution: [facility] Location: [facility] Date of Collection: 10/14/2023 Date of Reported: 10/23/2023 11:08 Results to: Angelica Jain NP [facility] Final Diagnosis A. PAP SMEAR (THIN PREP) CE: SPECIMEN ADEQUACY: Satisfactory for evaluation; transformation zone present. INTERPRETATION: NEGATIVE FOR INTRAEPITHELIAL LESION OR MALIGNANCY. This specimen was analyzed by the automated ThinPrep Imaging System (CogniFit Adithya.) and the selected sterling were reviewed by a mobile marketing manager. [facility] Results\Inter pretation A. PAP SMEAR (THIN PREP) CE: Human Papilloma Virus TestNEGATIVE for high-risk Human Papilloma Virus types 16, 18, 45 and the Other high risk probe set (Includes 31, 33, 35, 39, 51, 52, 56, 58, 59, 66, 68)Note: Testing performed by [employer] Onclarity HR-HPV analysis. Clinical correlation is advised. This HPV test was performed at [facility], [address] [place] [address]. This test has been FDA approved for both SurePath and ThinPrep cervical cytology specimens. The accuracy and precision of this test for all other specimen sources has been verified in the Cytopathology Laboratory of the [facility] and has not been cleared or approved by the U.S. Food and Drug Administration. Clinical correlation is advised. [facility] Conversion Type (Conversion Source) 10/14/2023 10/16/2023 9:26 AM EDT us Angelica Freddy Jain DRESSER TENDER CYTOLOGY ORDERABLES Naif pearl Result - Final [facility] [address] [place] [address] from Last 3 Months or Most Recently Relevant to Health Maintenance Insurance MEDICARE PART A & B [facility] MEDICARE PART A & [place] [address] MEDICARE PART [facility] [place] & B [facility] MEDIC[facility] PART A & [place] & B [facility] MEDICARE PART [facility] & [facility] Advance Directives For more information, please contact: [phone] (9AM - 5PM [facility], Saturday-Saturday) * Full Code (Latest Code Status on File) Date Activated Date Inactivated Comments 01/23/2023 8:56 PM Question Answer Comments Code Status Confirmed With: Patient * Full Code Date Activated Date Inactivated Comments 01/23/2023 10:23 AM 01/23/2023 8:56 PM Question Answer Comments Code Status Confirmed With: Other (specify below ) Code Discussion Comments: periop Care Teams Regeneration Operator Relationship Specialty Start Date End Date Angelica Jain NP [address] [place] [address] [place] [address] PCP - General Family Medicine 10/20/21 Additional Source Comments The information contained in this document represents components of the legal health record. It is not the complete legal health record.[facility]
--- OUTSIDE RECORDS SUMMARY | 2025-02-15 18:09 | XMS_ITS | Encounter Summary ---
Author Organization [facility] Address [address] [facility] [address] [place] [address] Phone Care Team Providers Care Senior Quality Control Technician Name Role Phone Reinier Nataly Yungah CLIENT ENGAGEMENT MANAGER Primary Care Provide r Angelica Jain NP Primary Care Provider John Paul Hartman MD Unavailable + Jackson CampbellW Unavailable Un available Encounter Details Date Type Department Care Team (Late st Contact Info) Description 10/19/2021 Procedure Pass [facility], [facility] Scan - [address] [address] Social History Tobacco Use Types Packs/Day Years Used Date Smoking Tobacco: Never Smokeless Tobacco: Never Alcohol Use Standard Drinks/Week Comments Not Currently 0 (1 standard drink = 0.6 oz pur e alcohol) Comments No Sex and Gender Information Value [...] Description 03/26/2025 1:45 PM EST Office Visit [facility] [address] [place] [address] Unknown, Unknown, Kathleen Palma PA-C [address] [address] [email or web address] documented as of this encounter Visit Diagnoses Not on filedocumented in this encounter Care Teams Senior Quality Control Technician Relationship Specialty Start Date End Date Nataly Hills FNP [address] [place] [address] [email or web address] PCP - General Family Medicine 02/20/21 10/19/21 Angelica Jain, JAMES [address] [place] [address] [place] [address] PCP - General Family Medicine 10/20/21 John Paul Hartman MD [address] [place] [address] [place] [phone] [email or web address] Family Medicine 02/20/21 Jackson Lewis LCSW [address] [place] [address] [place] [address] Rating Specialist 11/08/21 04/29/24 documented as of this encounter Additional Source Comments The information contained in this document represents components of the legal health record. It is not the complete legal health record.[facility]
--- OUTSIDE RECORDS SUMMARY | 2025-02-15 18:09 | XMS_ITS | Clinical Summary ---
Author Organization [facility] Prior to 07/18/24 Address [address] [place] [address] Care Team Providers Care Wellfield Technician Name Role Phone Unavailable Primary Care Provider Unavailabl e Immunizations Name Administration Dates Next Due Covid-19 (Pfizer) Dilution Required 06/24/2020,0 06/03/2020 Social History Tobacco Use Types Packs/Day Years Used Date Smoking Tobacco: Never Assessed Sex and Gender Information Value Date Recorded Sex Assigned at Female 06/24/2020 3:53 PM EDT Gender Identity Not on file Sexual Orientation Not on file Job Start Date Occupation Industry Not on file Not on file Not on file Plan of Treatment Health Maintenance Due Date Last Done Comments Hepatitis B Vaccines (1 of 3 - 3-dose series) 1981 Hepatitis C Screening 1981 Depression Screening 1993 Preventative Health Evaluation 07/31/1999 DTap / Tdap / Td (1 - Tdap) 2000 Cervical Cancer Screening (Pap Smear) 2002 COVID-19 Vaccine (3 - 2024-2 6 season) 2024 06/24/2020, 06/03/2020 Influenza Vaccine (#1) 2024 Pneumococcal Vaccine Aged Out No long er eligible based on patient's age to complete this topic RSV Ped < 20 months Aged Out No longe r eligible based on patient's age to complete this topic
--- OUTSIDE RECORDS SUMMARY | 2025-02-15 18:09 | XMS_ITS | Encounter Summary ---
Author Organization [facility] Address [address] [facility] [address] [place] [phone] Phone Care Team Providers Care Procedure Rn Name Role Phone Angelica Jain NP Primary Care Provider John Paul Hartman MD Unavailable + Jackson Campbell DAIRY FARM WORKER Unavailable Un available Encounter Details Date Type Department Care Team (Late st Contact Info) Description 01/23/2023 Procedure Pass [place] Admitting Dept - Virtual Department [address] [place] [address] Social History Tobacco Use Types Packs/Day Years [...] Answer Date Recorded Are you interested in help w ith more adult education (for example, completing high school, GED, job training, learning the Serbian language, technical skills, or developing parenting skills)? Yes 11/13/2021 Food Answer Date Recorded Within the past [...] Description 03/26/2025 1:45 PM EST Office Visit [facility] [address] [place] [phone] Unknown, Unknown, Kathleen Palma PA-C [address] [place] [address] [place] [address] [email or web address] documented as of this encounter Visit Diagnoses Not on filedocumented in this encounter Additional Health Concerns Assessment Noted Time PHQ-2 Depression Total Score: 2 11/14/19 22 8:56 AM EDT documented as of this encounter Care Teams Procedure Rn Relationship Specialty Start Date End Date Angelica Jain NP [address] [place] [address] PCP - General Family Medicine 10/20/21 John Paul Hartman MD [address] [place] [address] [email or web address] Family Medicine 02/20/21 [place] [address] Software Support Technician 11/08/21 04/29/24 documented as of this encounter Additional Source Comments The information contained in this document represents components of the legal health record. It is not the complete legal health record.[facility]
== END 2025-02-15 17:49 | disposition home or self-care (01) ==
PROVIDERS: Physician Assistant Medical; Emergency Provider Emergency Medicine; PCP Nurse Practitioner Primary Care
DX: D89.4 Mast cell activation syndrome and related disorders (principal); K12.1 Other forms of stomatitis; Z03.818 Encounter for observation for suspected exposure to other biological agents ruled out
CPT/HCPCS: 80053; 85025; 86308; 87637; 87651; 99282; 99283